=== PATIENT | male | born 1935 | race Caucasian/White ===

== ENCOUNTER 2017-03-29 12:43 | Inpatient (IN) | payer OTHER, MEDICARE ==
[~2017-03-29] VITALS: Ht 177.8 cm; Wt 81.6 kg
[2017-03-29 13:22] LABS: ABSOLUTE BASOPHIL COUNT 0 /CUMM (0.0-0.2); ABSOLUTE EOSINOPHIL COUNT 0 /CUMM (0.0-0.7); ABSOLUTE LYMPH COUNT 1.2 /CUMM (1.2-3.4); ABSOLUTE MONOCYTE COUNT 1.9 /CUMM (0.10-0.60); BASOPHIL % 0.2 % (0.0-2.0); EOSINOPHIL % 0.1 % (0-5); HEMATOCRIT 44.3 % (42-52); MEAN CORPUSCULAR HGB CONC 33.2 G/DL (33.0-37.0); MEAN CORPUSCULAR VOLUME 96.3 FL (80.0-94.0); MEAN PLATELET VOLUME 8.7 FL (7.4-10.4); PLATELET COUNT 267 /CUMM (130-400); RBC DISTRIBUTION WIDTH 13.5 % (11.5-14.5); WHITE BLOOD CELL COUNT 8.1 /CUMM (4.8-10.8)
[2017-03-29] MEDS ORDERED: LOSARTAN POTAS100 M1 PO (13:23)
[2017-03-29] MEDS ORDERED: AMLODIPINE BESYL5 M1 PO (13:23)
[2017-03-29] MEDS ORDERED: CEFUROXIME500 MG PO (13:24)
[2017-03-29] MEDS ORDERED: PRESERVISION A1 EAC1 PO (13:25)
[2017-03-29] MEDS ORDERED: OCUVITE SOFTGE1 EACH PO (13:38)
--- NOTE | 2017-03-29 13:39 | RADIOLOGY REPORT ---
EXAMINATION: XR CHEST CLINICAL INFORMATION: Shortness of breath, cough and congestion. Rule out pneumonia. COMPARISON: Chest x-ray dated 08/25/2012. TECHNIQUE: 2 views of the chest were obtained. FINDINGS: The cardiomediastinal silhouette is within normal limits in size. Persistent left basilar reticular opacities are seen, slightly progressed compared to prior exam, consistent with acute on chronic atelectasis.. Mild linear subsegmental atelectasis is also seen in the right lung base. No dense consolidation, effusion or pneumothorax is seen. Central airways are slightly thickened. Bony structures are unremarkable. IMPRESSION: 1. Acute on chronic left basilar atelectasis. Mild linear subsegmental atelectasis right lung base. Recommend follow-up chest x-ray to document resolution of findings. 2. No definite dense consolidation seen to suspect pneumonia.
[2017-03-29] MEDS ORDERED: TURMERIC500 M2 PO (13:40)
[2017-03-29] MEDS ORDERED: RESTASIS1 EACH OU (13:40)
--- NOTE | 2017-03-29 13:48 | ED GENERAL ADULT ---
History of Present Illness General Chief Complaint: General Adult Stated Complaint: "I WAS GIVEN THE WRONG MED, I HAVE SIDE EFFECTS" Source: patient Exam Limitations: no limitations Vital Signs & Intake/Output Vital Signs & Intake/Output Vital Signs Date Time Temp Pulse Resp B/P B/P Pulse O2 O2 Flow FiO2 Mean Ox Delivery Rate 03/31 1442 97.8 70 20 108/56 92 03/31 0800 91 Nasal 1.0L Cannula 03/31 0646 98.6 52 18 110/56 96 Nasal 2.0L Cannula 03/31 0000 Nasal 2.0L Cannula 03/30 2226 98.1 65 20 130/60 91 Room Air 03/30 2206 70 132/82 ED Intake and Output 03/31 0000 03/30 1200 Intake Total 1640 Output Total 400 1075 Balance 1240 -1075 Intake, Oral 1640 Output, Urine 400 1075 Patient 180 lb Weight Allergies Coded Allergies: Penicillins (ANAPHYLAXIS 03/29/17) cefuroxime (VOMITING, DIZZY, DISORIENTED, PER PT THOUGHT STROKE 03/29/17) morphine (UPSET STOMACH/VOMITING 03/29/17) Reconcile Medications Amlodipine Besylate 5 MG TABLET 1 TAB PO QPM BP (Reported) Cefuroxime Axetil (Cefuroxime) 500 MG TABLET 1 TAB PO BID ANTIBIOTIC ( Reported) Cyclosporine (Restasis) 0.05 % DROPERETTE 2 GTT OU PRN BOTH EYES -LUBRICANT ( Reported) Losartan Potassium 100 MG TABLET 1 TAB PO DAILY BP (Reported) Turmeric Root Extract (Turmeric) (Unknown Strength) CAPSULE (Unknown Dose) PO DAILY INFLAMMATION (Reported) Vit C/Vit E/Lutein/Min/[place]-3 (Ocuvite Softgel) 150 MG-30 UNIT-5 MG-150 MG CAPSULE 1 CAP PO DAILY SUPPLEMENT (Reported) Triage Note: PT TO ED S/P DX WITH SINUS INFECTION PRESCRIBED WITH CEFUROXIME, TOOK ONE DOSE AT 11 AM YESTERDAY, "GOT INSTANTLY NAUSEAUS, DIZZY, LIGHTHEADED". PT CONTINUES TO C/O "I HAVE NO STRENGTH, AND DIZZY". Triage Nurses Notes Reviewed? yes Onset: YESTERDAY Duration: hour(s):, better, constant, continues in ED, waxing and waning Severity: moderate HPI: Patient presents for evaluation of an adverse reaction to an antibiotic. The patient was diagnosed with postnasal drip and was given a prescription for cefuroxime. He states he has a known penicillin allergy (hives). After taking the medication and became disoriented with slurred speech and an unsteady gait. He even vomited once. Fortunately he is now asymptomatic. Patient denies rash swelling or wheezing. Past History Travel History Traveled to [place] past 21 day No Medical History Any Pertinent Medical History? see below for history Neurological: NONE EENT: NONE Cardiovascular: hypertension Respiratory: NONE Gastrointestinal: diverticulitis Hepatic: NONE Renal: benign prost hyperplasia Musculoskeletal: NONE Psychiatric: NONE Endocrine: NONE Blood Disorders: NONE Cancer(s): NONE HAIR PREPARER/Reproductive: NONE Surgical History Surgical History: non-contributory Psychosocial History What is your primary language Latvian Tobacco Use: Never used ETOH Use: denies use Illicit Drug Use: denies illicit drug use Family History Hx Contributory? No Review of Systems Review of Systems Constitutional: Reports: no symptoms. EENTM: Reports: no symptoms. Respiratory: Reports: no symptoms. Cardiovascular: Reports: no symptoms. GI: Reports: no symptoms. Genitourinary: Reports: no symptoms. Musculoskeletal: Reports: no symptoms. Skin: Reports: no symptoms. Neurological/Psychological: Reports: see HPI. Hematologic/Endocrine: Reports: no symptoms. Immunologic/Allergic: Reports: no symptoms. All Other Systems: Reviewed and Negative Physical Exam Physical Exam General Appearance: see below Comments: Gen.: Well-nourished, well-developed, no acute respiratory distress. Head: Normocephalic, atraumatic. Eyes: Normal inspection bilaterally Ears: Normal inspection bilaterally Nose: Normal inspection Throat/mouth : Moist mucosa Neck: Supple, full range of motion, no goiter Heart: Regular rate and rhythm, no murmurs rubs or gallops Lungs: Clear to auscultation bilaterally with normal air entry Chest: Nontender Back: Normal range of motion Abdomen: Soft, nontender, nondistended, normal bowel sounds Extremities: Normal range of motion grossly, equal radial pulses, no cyanosis clubbing or edema Neurologic: Cranial nerves grossly intact, speech is clear Skin: warm and dry Psychiatric: Calm, cooperative, no apparent delusions or hallucinations Core Measures ACS in differential dx? No CVA/TIA Diagnosis: No Sepsis Present: No Sepsis Focused Exam Completed? No Progress Differential Diagnoses I considered the following diagnoses in my evaluation of the patient: Allergic reaction, adverse side effect Plan of Care: Orders Procedure Date/time Status Vital Signs 03/31 332 Active Teach/Educate 03/31 332 Active Pain Treatment and Response 03/31 332 Active Nutritional Intake, Monitor 03/31 332 Active Isolation 03/31 332 Active Intake & Output 03/31 332 Active Patient Care Conference 03/31 332 Active Activity/Ambulation 03/31 332 Active Anticipated Discharge 03/31 UNK Active Current Medications Sig/Noreen Start time Last Medication Dose Stop Time Status Admin Codeine 15 MG AT BEDTIME NEED.. 03/31 1015 AC (Codeine 15MG Tablet) Oseltamivir Phosphate 75 MG BID 03/30 1402 AC 03/31 (Tamiflu 75MG) 04/03 2201 1023 Amlodipine Besylate 5 MG QPM 03/29 2300 AC 03/30 (Norvasc) 2206 Guaifenesin 10 ML Q6P PRN 03/29 2130 AC 03/31 (Robitussin) 0445 Sodium Chloride 2 SPRAY Q4P PRN 03/29 213 AC (Nasal) Acetaminophen 650 MG Q6P PRN 03/29 2045 AC (Tylenol) Acetaminophen 1,000 MG Q6P PRN 03/29 2045 AC (Ofirmev) Laboratory Tests 03/31/17 0820: Anion Gap 10, Estimated GFR > 60, BUN/Creatinine Ratio 20.0, TSH 2.080, Free T4 0.66 L, Thyroxine Binding Indx 33.9, Total Testosterone 27.2 L, Cortisol AM Sample 12.8 03/31/17 0820: ACTH Stimulation Pending, CBC w Diff MAN DIFF ORDERED, RBC 4.23 L, MCV 95.8 H, MCH 32.6 H, RDW 13.2, MPV 8.6, Gran % 32.8 L, Lymphocytes % 43.9, Monocytes % 20.8 H, Eosinophils % 1.9, Basophils % 0.6, Absolute Granulocytes 1.8, Segmented Neutrophils 32 L, Band Neutrophils 5, Absolute Lymphocytes 2.5, Lymphocytes 46, Monocytes 12 H, Absolute Monocytes 1.2 H, Eosinophils 4, Absolute Eosinophils 0.1, Basophils 1, Absolute Basophils 0, Platelet Estimate ADEQUATE, Normocytic RBCs VERIFIED, Normochromic RBCs VERIFIED, PUBS MCHC 34.0 03/31/17 0515: Urine Osmolality 277 L 03/31/17 0515: Urine Color YEL, Urine Clarity CLEAR, Urine pH 6.0, Ur Specific [place] 1.010, Urine Protein NEG, Urine Ketones NEG, Urine Nitrite NEG, Urine Bilirubin NEG, Urine Urobilinogen 0.2, Ur Leukocyte Esterase NEG, Ur Microscopic EXAM NOT REQUIRED, Urine Hemoglobin NEG, Urine Glucose NEG 03/30/17 1615: Insulin-like GF I Pending, IGF I Z-Score (Male) Pending, IGF I Z-Score (Female) Pending, ACTH Stimulation Pending Diagnostic Imaging: Discussed w/RAD: CT Scan. Radiology Impression: PATIENT: HUGH OAKES PRESENT AGE: 81 PATIENT ACCOUNT NO: [id number] : 35 LOCATION: [facility] ORDERING PHYSICIAN: Randall Stroud MD SERVICE DATE: 03/29/17 EXAM TYPE: CAT - CT HEAD WO IV CONTRAST EXAMINATION: CT HEAD WITHOUT CONTRAST CLINICAL INFORMATION: Slurred speech and gait instability. COMPARISON: None TECHNIQUE: Contiguous axial imaging was performed from the skull base to vertex without intravenous administration of contrast. DLP: 627 mGy-cm FINDINGS: There is no evidence of acute intracranial hemorrhage or territorial infarction. No abnormal mass effect or midline shift is seen. Thompson to white matter differentiation is well preserved. There is small prominent hypodensity in the sella extending to suprasellar region and measuring fluid density likely arachnoid cyst or empty sella syndrome. The ventricles are a mildly enlarged with mild prominence of cortical sulci.. There is no abnormal attenuation within the brain parenchyma. The osseous structures and soft tissues are normal. The mastoid air cells and visualized portions of the paranasal sinuses are well aerated. 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 There R adjacent vascular calcifications of carotid arteries. The lesion probably has a mass effect on the foramina of [place] or the third ventricle. This is most likely an arachnoid cyst. Other differential diagnosis such as cystic intrasellar pituitary tumor is considered less likely. Recommend MRI brain with and without contrast with attention to the sella. If previous CT is available at other institutions comparison can be performed. DICTATED BY: Penny JARA,Eduardo DATE/TIME DICTATED:03/29/171629 PILLING MACHINE OPERATOR:NOONAN DATE/TIME TRANSCRIBED:03/29/171629 CONFIDENTIAL, DO NOT COPY WITHOUT APPROPRIATE AUTHORIZATION. <Electronically signed in Other Vendor System> SIGNED BY: Penny JARA,Eduardo 03/29/17 0212 Initial ED EKG: NSR, rate (65), no ST T wave changes Prior EKG: unchanged Comments: 03/29/2017 6:23:32 PM patient's case discussed with Dr. Mackay and subsequently with Dr. Flynn who feels that the arachnoid cyst is an incidental finding but recommends endocrinology consultation given its position within the brain. Departure Departure Disposition: HOME OR SELF CARE Condition: Stable Clinical Impression Primary Impression: Adverse reaction to antibiotic Qualifiers: Encounter type: initial encounter Qualified Code: T36.95XA - Adverse effect of unspecified systemic antibiotic, initial encounter Referrals: Adore JARA,Danyel Yang (PCP/Family) Departure Forms: Customer Survey General Discharge Information Critical Care Note Critical Care Note Critical Care Time: non-applicable
--- NOTE | 2017-03-29 16:46 | CT SCAN REPORT ---
EXAMINATION: CT HEAD WITHOUT CONTRAST CLINICAL INFORMATION: Slurred speech and gait instability. COMPARISON: None TECHNIQUE: Contiguous axial imaging was performed from the skull base to vertex without intravenous administration of contrast. DLP: 627 mGy-cm FINDINGS: There is no evidence of acute intracranial hemorrhage or territorial infarction. No abnormal mass effect or midline shift is seen. Thompson to white matter differentiation is well preserved. There is small prominent hypodensity in the sella extending to suprasellar region and measuring fluid density likely arachnoid cyst or empty sella syndrome. The ventricles are a mildly enlarged with mild prominence of cortical sulci.. There is no abnormal attenuation within the brain parenchyma. The osseous structures and soft tissues are normal. The mastoid air cells and visualized portions of the paranasal sinuses are well aerated. 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 There R adjacent vascular calcifications of carotid arteries. The lesion probably has a mass effect on the foramina of [place] or the third ventricle. This is most likely an arachnoid cyst. Other differential diagnosis such as cystic intrasellar pituitary tumor is considered less likely. Recommend MRI brain with and without contrast with attention to the sella. If previous CT is available at other institutions comparison can be performed.
--- NOTE | 2017-03-29 21:54 | History & Physical ---
Laura JARA,[facility] 03/29/17 2153: General Information and HPI MD Statement: I have seen and personally examined HUGH PARIS and documented this H&P. The patient is a 81 year old M who presented with a patient stated chief complaint of [lightheadedness and unsteady gait]. Source of Information: patient Exam Limitations: no limitations History of Present Illness: Mr. Paris is a 84-year-old gentleman with past medical history significant for hypertension, BPH, diverticulitis and basal cell carcinoma presents to the ER with chief complaints of weakness, lightheadedness and unsteady gait for the past 3 days. According to the patient, he had cough postnasal drip for the past 3-4 days, he went to a walk-in clinic 2 days ago and was prescribed cefuroxime for postnasal drip. He took only one dose of antibiotic and started feeling weak, lightheaded and unsteady on his gait, thinks he caught a panic reaction from the antibiotic is is allergic to penicillin. Also reports feeling congested, chills or chest pain with cough. Denies fever, sick contacts or recent travel. States cough is severe, wakes him up from sleep and is especially worse on lying down. Denies any localized weakness, numbness or tingling in any part of the body. Allergies/Medications Allergies: Coded Allergies: Penicillins (ANAPHYLAXIS 03/29/17) cefuroxime (VOMITING, DIZZY, DISORIENTED, PER PT THOUGHT STROKE 03/29/17) morphine (UPSET STOMACH/VOMITING 03/29/17) Home Med list Amlodipine Besylate 5 MG TABLET 1 TAB PO QPM BP (Reported) Cefuroxime Axetil (Cefuroxime) 500 MG TABLET 1 TAB PO BID ANTIBIOTIC ( Reported) Cyclosporine (Restasis) 0.05 % DROPERETTE 2 GTT OU PRN BOTH EYES -LUBRICANT ( Reported) Losartan Potassium 100 MG TABLET 1 TAB PO DAILY BP (Reported) Turmeric Root Extract (Turmeric) (Unknown Strength) CAPSULE (Unknown Dose) PO DAILY INFLAMMATION (Reported) Vit C/Vit E/Lutein/Min/[place]-3 (Ocuvite Softgel) 150 MG-30 UNIT-5 MG-150 MG CAPSULE 1 CAP PO DAILY SUPPLEMENT (Reported) Past History Travel History Traveled to [place] past 21 day No Medical History Neurological: NONE EENT: NONE Cardiovascular: hypertension Respiratory: NONE Gastrointestinal: diverticulitis Hepatic: NONE Renal: benign prost hyperplasia Musculoskeletal: NONE Psychiatric: NONE Endocrine: NONE Blood Disorders: NONE Cancer(s): basal cell carcinoma (1979) CLOUD ADMINISTRATOR/Reproductive: NONE Surgical History Surgical History: non-contributory Past Family/Social History Psychosocial History Smoking Status: Never Smoked ETOH Use: occasional use Illicit Drug Use: denies illicit drug use Functional Ability ADLs Independent: dressing, eating, toileting, bathing. Ambulation: independent IADLs Independent: shopping, housework, finances, food prep, telephone, transportation , medication admin. Review of Systems Review of Systems Constitutional: Reports: chills, weakness. EENTM: Reports: no symptoms. Cardiovascular: Reports: no symptoms. Respiratory: Reports: no symptoms. GI: Reports: no symptoms. Genitourinary: Reports: no symptoms. Musculoskeletal: Reports: no symptoms. Skin: Reports: no symptoms. Neurological/Psychological: Reports: no symptoms. Hematologic/Endocrine: Reports: no symptoms. Immunologic/Allergic: Reports: no symptoms. All Other Systems: Reviewed and Negative Exam & Diagnostic Data Last 24 Hrs of Vital Signs/I&O Vital Signs Date Time Temp Pulse Resp B/P B/P Pulse O2 O2 Flow FiO2 Mean Ox Delivery Rate 03/30 0007 98.6 61 20 138/62 94 Nasal 2.0L Cannula 03/30 0000 Nasal 2.0L Cannula 03/29 2320 98.5 56 18 115/56 96 Nasal 2.0L Cannula 03/29 2220 98.7 59 18 138/61 03/29 1857 59 18 138/61 96 Nasal 2.5L Cannula 03/29 1631 98.7 60 18 136/62 95 Nasal 2.5L Cannula 03/29 1502 98.5 64 18 142/68 94 Room Air 03/29 1246 98.2 77 20 128/66 94 Room Air Room Air Intake & Output 03/30 0800 03/30 0000 03/29 1600 Intake Total 440 0 Output Total 175 0 Balance 265 0 Intake, Oral 440 0 Output, Urine 175 0 Patient 180 lb 180 lb Weight Weight Reported by Patient Measurement Method Physical Exam General Appearance Alert, Oriented X3, Cooperative, No Acute Distress Skin No Rashes, No Breakdown HEENT Atraumatic, PERRLA, EOMI, Dry Mucous Membranes Neck Supple, No JVD, No thryomegaly Cardiovascular Regular Rate, Normal S1, Normal S2 Lungs Clear to Auscultation, Normal Air Movement Abdomen Normal Bowel Sounds, Soft, No Tenderness Neurological Normal Speech, Strength at 5/5 X4 Ext, Normal Tone, Sensation Intact, Cranial Nerves 3-12 NL Extremities No Clubbing, No Cyanosis, No Edema, Normal Pulses Last 24 Hrs of Labs/Ran: Laboratory Tests 03/29/17 2134: Anion Gap 10, Estimated GFR > 60, BUN/Creatinine Ratio 20.0, Troponin I 0.04 03/29/17 2130: Troponin I Cancelled 03/29/17 1551: Urinalysis LIGHT H, Urine Color YEL, Urine Clarity CLEAR, Urine pH 6.0, Ur Specific [place] >= 1.030, Urine Protein 30 H, Urine Ketones NEG, Urine Nitrite NEG, Urine Bilirubin NEG, Urine Urobilinogen 0.2, Ur Leukocyte Esterase NEG, Ur Microscopic SEDIMENT EXAMINED, Urine RBC RARE, Ur Epithelial Cells RARE, Urine Mucus RARE, Urine Hemoglobin TRACE-INTACT H, Urine Glucose NEG 03/29/17 1551: Urine Osmolality 704, Ur Random Creatinine 192.8, Ur Random Sodium 30, Ur Random Potassium 69.6, Fraction Sodium Excret 0.1 03/29/17 1257: Anion Gap 11, Estimated GFR 58 L, BUN/Creatinine Ratio 17.5, Glucose 108 H, Serum Osmolality 267 L, Calcium 8.5, Magnesium 1.8, Total Bilirubin 0.8, AST 43 , ALT 48, Alkaline Phosphatase 52, Troponin I 0.03, Total Protein 6.5, Albumin 3.6, Globulin 2.9, Albumin/Globulin Ratio 1.2, TSH 0.618, Free T4 0.68 L, Cortisol PM Sample 20.9 H, CBC w Diff MAN DIFF ORDERED, RBC 4.60 L, MCV 96.3 H, MCH 32.0 H, RDW 13.5, MPV 8.7, Gran % 61.0, Lymphocytes % 15.0 L, Monocytes % 23.7 H, Eosinophils % 0.1, Basophils % 0.2, Absolute Granulocytes 5.0, Segmented Neutrophils 55, Band Neutrophils 5, Absolute Lymphocytes 1.2, Lymphocytes 13 L, Monocytes 27 H, Absolute Monocytes 1.9 H, Absolute Eosinophils 0, Absolute Basophils 0, Platelet Estimate VERIFIED BY SMEAR, Poikilocytosis 1+, Britton Cells 1+, PUBS MCHC 33.2 Diagnostic Data EKG Results Normal sinus rhythm QTC 421 Nonspecific interventricular conduction delay CXR Results IMPRESSION: Clear lungs. No acute process. Assessment/Plan Assessment: Mr. Paris is a 84-year-old gentleman with past medical history significant for hypertension, BPH, diverticulitis and basal cell carcinoma presents to the ER with chief complaints of weakness, lightheadedness and unsteady gait for the past 3 days. A/P 1. CT findings of her arachnoid cyst; - CT head shows Intrasellar hypodense lesion with suprasellar extension likely arachnoid cyst. -Further assessment with MRI - Neurosurgery consultation in am 2. Lightheadedness, weakness and unsteady gait likely secondary to Hyponatremia ; - Patient is low serum sodium, low serum osmolality and high urine osmolality and high urine specific gravity suggesting dehydration. - We'll continue gentle hydration - Will check serum sodium every 6-8 hours with a goal correction of 8 mEq per 24 hours. 3. Postnasal drip; - Continue conservative management with Flonase and Tessalon 4. Hypertension - Continue home medications. DVT prophylaxis with subcutaneous Lovenox Patient is full code As Ranked By This Provider Problem List: 1. Arachnoid cyst 2. Hyponatremia Core Measures/Misc (12/07) Acute Coronary Syndrome ACS Diagnosis: No Congestive Heart Failure Congestive Heart Failure Diagnosis No Cerebrovascular Accident CVA/TIA Diagnosis: No VTE (View Protocol) VTE Risk Factors Age>40 No Mechanical VTE Prophylaxis d/t N/A MechProphylax Ordered No VTE Pharm Prophylaxis d/t NA PharmProphylax ordered Sepsis (View protocol) Sepsis Present: No Andra Holcomb 03/29/17 4449: Resident Review Statement Resident Statement: examined this patient, discussed with business analyst intern Other Findings: Patient is a 81-year-old gentleman with a past medical history negative for hypertension, dry eyes presented to the ED for the evaluation of generalized weakness and malaisS. Patient has been feeling weak and lethargic for the last 1 week(as per family). Reports dizziness with lightheadedness and unsteady gait. Also has been having upper respiratory symptoms including dry cough and postnasal drip. Patient was seen in the urgent care about 2 days ago and was given cefuroxime for possible sinus infection. After taking the medication, patient's symptoms gotten worse, felt extremely weak and lethargic. Patient has a known penicillin allergy(HIVES), and blamed all of the symptoms related to taking the medication. Denies any chest discomfort/trouble breathing palpitations. Denied nausea vomiting abdominal discomfort no urinary bowel habit complaints no recent weight loss. Denies any blurry vision/falls. Of the note patient does not drink enough water on a daily basis, and on top of it drinks 6 cups of coffee. Never smoked and does not drink alcohol or use any illicit drugs. Vitals on admission temperature 98.2, pulse 77,resp rate 20, blood pressure 128/ 66 on room air. On examination General Appearance:alert oriented 3, not in acute distress Skin: Grossly normal HEENT: PEERLA Neck: Supple, No JVD Cardiovascular: Regular Rate, Normal S1, Normal S2, systolic murmur in the second right intercostal space. Lungs: Equal breath sounds bilaterally on lung exam without any rhonchi or wheeze Abdomen: Normal Bowel Sounds, Soft, no tenderness Neurological: Normal Speech, Strength at 5/5 X4 Ext, Cranial Nerves 3-12 NL, Reflexes 2+ Extremities: No evidence of edema/swelling in the lower extremities. Pertinent labs on admission Normal WBC H&H stable, hyponatremia 130 elevated BUN 21 with normal creatinine 1.2, serum osmolality low at 267, with remission levels pending, normal LFTs, Urine osmolality 704, with urine random sodium 30. Chest x-ray: Acute on chronic left basilar atelectasis. Mild linear subsegmental atelectasis right lung base. Recommend follow-up chest x-ray to document resolution of findings. CT head revealed Intrasellar hypodense lesion with suprasellar extension likely arachnoid cyst. There R adjacent vascular calcifications of carotid arteries. The lesion probably has a mass effect on the foramina of [place] or the third ventricle. This is most likely an arachnoid cyst. Other differential diagnosis such as cystic intrasellar pituitary tumor is considered less likely. Recommend MRI brain with and without contrast with attention to the sella. Problem list Generalized weakness and malaise with dizziness and lightheadedness(likely dehydration)-hypotonic hypovolemic hyponatremia. Unsteady gait with weakness with a positive CT scan findings((Arachnoid cyst with a mass effect) Persistent cough and postnasal drip History of hypertension Generalized weakness and malaise with dizziness and lightheadedness(likely dehydration)-hypotonic hypovolemic hyponatremia. * Admit the patient [facility] floor * Patient received 1 L normal saline in the ED will recheck BEP. * Labs including BUN, serum osmolality and urine osmolality are consistent with underlying dehydration leading to hyponatremia. * We'll continue with gentle hydration. * Recheck sodium levels every 6-8 hours. * Avoid overcorrection more than 8 mEq per liter. Unsteady gait with weakness /dizziness with a positive CT scan findings( Arachnoid cyst with a mass effect) * Patient's underlying symptoms can be related to CT scan finding of arachnoid cyst with a mass effect. * For further assessment/investigation of the cyst will do MRI of the head with and without gadolinium tomorrow. * Obtained neurosurgery consult tomorrow. Persistent cough and postnasal drip * symtomatic treatment. * tessolon pearls. * consider checking flu swab in am. History of hypertension * Continue amlodipine and losartan. DVT prophylaxis with subcutaneous Lovenox Mild to moderate pain controlled with IV Tylenol Patient is full code Sung Mackay MD 03/29/17 2303: Attending MD Review Statement Attending Statement Attending MD Statement: examined this patient, discuss w/resident/PA/TRUCK UNLOADER, agreed w/resident/PA/TRUCK UNLOADER, discussed with family, reviewed EMR data (avail), reviewed images, amended to note Attending Assessment/Plan: The patient is an 81 yo male with h/o HTN, diverticulitis, & BPH who presented in the [place] ED on the day of admission with c/o generalized weakness and malaise. He had been seen at an urgent care center and treated for post nasal drip with a cephalosponin (cefuroxime) antibiotic. He initially came to the ED after an episode of nausea and dizziness- confusion noted by family feeling his symptoms may be a side effect as he is PCN allergic, however symptoms pre-dated the antibiotic. He denied any fever, chills, dyspnea (had cough on reclining due to post nasal drip). In the ED it was noted that his Na was 130 and urine SG high- he appeared volume depleted. He did endorse that he does not drink much liquid except coffee. He underwent a CT scan of the head in the ED which showed abnormality as described. Physical Exam: VS: T 8.5, P 60, R 18, BBP 136/62, PO 95% 2.5 L HEENT: eyes- PERRLA, EOMI nose- clear discharge aric- dry mucosa Neck: no JVD/bruits Chest: clear Cor: RRR nl S1, S2 w/o murm Abd: BS+, soft, NT, - masses or HSM Ext: no edema, pulses 2_ Neuro: alert & oriented x 3 at time of my exam, mild generalized weakness, however non-focal, gait not tested Labs/Tests- as above Impression/Plan: #Weakness/Malaise- most likely secondary to hyponatremia. Plan: Will brink in as OBServation patient and correct hyponatremia and follow. PT evaluation. #Hyponatremia- most c/w volume depletion based on exam. Urine SG is high. Plan: Agree with IV hydration with NS and re-check BEP. Check urine lytes, osms, etc. - check serum Mg. #Arachnoid Cyst- noted on head CT- ? mass effect, ? pituitary involvement. Plan: Will obtain MRI with pituitary protocol as suggested by Radiology. Consult Neurosurgery. Agree with checking TSH and Cortisol. #HTN- BP has been stable as per patient. Plan: Continue Amlodipine. Consider hold losartan with Na level. #Post Nasal Drip- he had been begun on FLonase as well. Coughs when reclines. No purulent sputum (only clear). Plan: Continue Flonase - Abhion Yovani prn, follow symptoms.
[2017-03-30 00:07] VITALS: BP 138/62
[2017-03-30 07:35] VITALS: BP 140/62
[2017-03-30 09:29] LABS: ABSOLUTE BASOPHIL COUNT 0 /CUMM (0.0-0.2); ABSOLUTE EOSINOPHIL COUNT 0 /CUMM (0.0-0.7); ABSOLUTE GRANULOCYTE CT 3.2 /CUMM (1.4-6.5); EOSINOPHIL % 0.4 % (0-5); MEAN PLATELET VOLUME 8.9 FL (7.4-10.4)
--- NOTE | 2017-03-30 09:35 | PN- Att Addend ---
Attending Addendum Attending Brief Note Patient seen and examined. He says he hasn't tried to walk so he doesn't know about his dizziness but his cough is still very bad and he cannot lay flat at all without coughing. He is an 81-year-old male with a past medical history of hypertension and BPH who is here with acute onset of dizziness. He was found to have hyponatremia in the ER and was brought in for observation for presumed hypovolemic hyponatremia and a CT head that showed a questionable arachnoid cyst with ? mass effect. I explained to him the finding of the CT head and that we really need to get an MRI to evaluate better. At this point he is euvolemic so I will stop the fluids. Taper the O2, check a flu swab follow-up on the MRI and follow.
[2017-03-30 09:57] LABS: ABSOLUTE LYMPH COUNT 1.6 /CUMM (1.2-3.4); ABSOLUTE MONOCYTE COUNT 1.8 /CUMM (0.10-0.60); BASOPHIL % 0.4 % (0.0-2.0); GRANULOCYTE % 48.1 % (42.2-75.2); HEMATOCRIT 41.3 % (42-52); MEAN CORPUSCULAR HGB 32.6 PG (27.0-31.0); MEAN CORPUSCULAR HGB CONC 34.2 G/DL (33.0-37.0); MEAN CORPUSCULAR VOLUME 95.4 FL (80.0-94.0); PLATELET COUNT 235 /CUMM (130-400); RBC DISTRIBUTION WIDTH 13.1 % (11.5-14.5); RED BLOOD CELL CT 4.32 /CUMM (4.70-6.10); WHITE BLOOD CELL COUNT 6.7 /CUMM (4.8-10.8)
--- NOTE | 2017-03-30 11:26 | PN- Housestaff ---
Subjective Follow-up For: Generalized weakness Dizziness Cystic macroadenoma Subjective: The patient was seen and examined. He presented to the hospital for generalized weakness and dizziness for the past 3 days. He denies any visual complaints, visual changes. Denies headache, nausea, vomiting, shortness of breath, chest pain, abdominal pain, urinary symptoms. He states that he was recently diagnosed with acute postnasal drip and was prescribed antibiotics (cefuroxime). He attributed his symptoms to cefuroxime as he has history of allergy to penicillins. Vital signs stable. Rapid flu positive. Review of Systems Constitutional: Reports: see HPI, malaise, weakness. Denies: chills, diaphoresis, fever, unexplained weight loss. Objective Last 24 Hrs of Vital Signs/I&O Vital Signs Date Time Temp Pulse Resp B/P B/P Pulse O2 O2 Flow FiO2 Mean Ox Delivery Rate 03/30 1436 97.8 66 20 138/66 92 Room Air Room Air 03/30 1202 58 132/56 03/30 0800 95 Nasal 2.0L Cannula 03/30 0800 95 Nasal 2.0L Cannula 03/30 0735 98.4 61 20 140/62 92 03/30 0007 98.6 61 20 138/62 94 Nasal 2.0L Cannula 03/30 0000 Nasal 2.0L Cannula 03/29 2320 98.5 56 18 115/56 96 Nasal 2.0L Cannula 03/29 2220 98.7 59 18 138/61 03/29 1857 59 18 138/61 96 Nasal 2.5L Cannula 03/29 1631 98.7 60 18 136/62 95 Nasal 2.5L Cannula Intake & Output 03/30 1600 03/30 0800 03/30 0000 Intake Total 440 Output Total 500 575 175 Balance -500 -575 265 Intake, Oral 440 Output, Urine 500 575 175 Patient 180 lb Weight Physical Exam General Appearance: Alert, Oriented X3, Cooperative, No Acute Distress Skin: No Rashes Skin Temp/Moisture Exam: Warm/Dry HEENT: Atraumatic, PERRLA, EOMI, Mucous Membr. moist/pink Neck: Supple, No JVD, No thryomegaly, +2 Carotid Pulse wo Bruit, No LAD Lymphatic: Axillary nl, Cervical nl Cardiovascular: Regular Rate, Normal S1, Normal S2, No Murmurs, Gallops, Rubs Lungs: Clear to Auscultation, Normal Air Movement Abdomen: Normal Bowel Sounds, Soft, No Tenderness, No Hepatospenomegaly, No Masses Neurological: Normal Gait, Normal Speech, Strength at 5/5 X4 Ext, Normal Tone, Sensation Intact, Cranial Nerves 3-12 NL, Reflexes 2+ Extremities: No Clubbing, No Cyanosis, No Edema, Normal Pulses, No Tenderness/ Swelling Vascular: Normal Pulses, Pulses Symmetrical Other Physical Findings: No nystagmus, [id number] intact, Assessment/Plan Assessment: This is a 81-year-old gentleman with a past medical history significant for hypertension, BPH, diverticulitis, basal cell carcinoma who presented to the ED for the evaluation of generalized weakness and malaise for 3 days. He was diagnosed for acute postnasal drip and was prescribed cefuroxime 3 days prior to admission. 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 Lovenox was discontinued. NSAIDS were avoided. Neurosurgery, neurology, endocrinology and ophthalmology were consulted. * The patient has remained without any visual symptoms and visual exam remained within normal limits. * Neurology and endocrinology recommended formal ophthalmology evaluation. * Additional testing including a repeat TSH, free T4, T3 also, a.m. cortisol, ACTH, testosterone, prolactin, LH, FSH, urine osmolality, UA were ordered to further assess pituitary function. * Given patient's low free T4, he may benefit from levothyroxine, but per endocrinology, this should be decided after a repeat free T4 and TSH. * Neurology and neurosurgery did not recommend corticosteroid therapy at this point. * Neurosurgery did not recommend any neurosurgical intervention and patient was asymptomatic with normal visual jones no sign of hemorrhage on imaging. They recommended follow-up in neurosurgery at [place] as an outpatient. * The patient was reevaluated by seal mixer who did not recommend any further inpatient evaluation. * Urgent transfer if he develops any visual field abnormalities, visual symptoms , headache or focal neurologic abnormalities. #Weakness/Malaise: Patient's low sodium level was considered as a contributing factor. * PT evaluation was ordered. * Flu swab came back positive for influenza. * The patient was started on and droplet precautions. #Hyponatremia: Was thought to be secondary to volume depletion. Urine specific gravity was high. Received IV hydration. * Monitor BEP #Hypertension: Stable, was maintained on amlodipine. Losartan was held given low sodium level. * Monitor closely #Postnasal drip and cough: C/w sodium chloride nasal spray and guaifenesin #DVT prophylaxis: Alps #Patient is full code. Problem List: 1. Hyponatremia 2. Brain mass Pain Ratin Pain Location: NA Pain Goal: Remain pain free Pain Plan: NA Tomorrow's Labs & Rationales: BEP: Monitor electrolytes CBC: Monitor H&H Pit fx: Test, TSH, free T4, LH,FSH, Am cortiso
--- NOTE | 2017-03-30 12:15 | MRI REPORT ---
EXAMINATION: MR BRAIN WITHOUT AND WITH CONTRAST CLINICAL INFORMATION: Further evaluation of the sellar and supersellar cyst. COMPARISON: Head CT from 03/29/2017 TECHNIQUE: MRI of the brain/pituitary was obtained using routine sequences before and after the intravenous administration of 17 mL of OptiMARK. FINDINGS: There is an expansile solid and cystic sellar and suprasellar mass, corresponding to the CT findings. There is mass effect upon the optic chiasm as well as a portion of the prechiasmatic optic nerves and retrochiasmatic optic tracts. There is also mild mass effect on the hypothalamus, right more than left, and mild mass effect on the inferior third ventricle. The cystic component is superiorly positioned and unilocular, with a tiny fluid level, and thin rim of enhancement; there is also a tiny linear focus of T1 shortening along the right lateral margin of the cystic component. The solid component is inferiorly positioned and inseparable from the pituitary tissue. In total the solid and cystic mass appears to measure approximately 1.8 x 2.1 x 2.2 cm (AP by TV by CC). The infundibulum is not definitively visualized separate from the mass. The cavernous internal carotid artery flow-voids are maintained. The cavernous sinuses and Meckel's caves appear maintained. The supraclinoid internal carotid arteries approximate the mass, and the A1 segments of the anterior cerebral arteries are draped across the anterior aspect of the mass. No acute brain ischemia. There is mild generalized prominence of the ventricles and sulci and mild scattered T2 prolongation in the bihemispheric white matter with a periatrial predominance. The major arterial and venous flow voids are maintained. No extra-axial surface collection. There is no shift of the normally midline structures. The cerebellar tonsils are normally positioned. No abnormal parenchymal enhancement is visualized accounting for artifact. Marrow signal is preserved. No upper cervical adenopathy. There is mild mucosal thickening in the frontal, ethmoid, sphenoid, and maxillary sinuses. 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 The differential would include a craniopharyngioma.
--- NOTE | 2017-03-30 14:11 | Cons- Neurology ---
General Information and HPI Consulting Request Date of Consult: 03/30/17 Requested By: Angeles JARA,Marisol Yang History of Present Illness: 81-year-old male with history of hypertension and benign prostatic hypertrophy since with a several day history of postnasal drip and cough. He thereafter began to feel somewhat lightheaded. He ultimately presented to [facility]. Due to his dizziness or lightheadedness he underwent imaging of the brain which revealed a suprasellar mass with a cystic component, suggestive of craniopharyngioma. Neurology has been asked to assess. The patient denies any significant headache, change in vision or appendicular symptomatology. There has been no vomiting. Allergies/Medications Allergies: Coded Allergies: Penicillins (ANAPHYLAXIS 03/29/17) cefuroxime (VOMITING, DIZZY, DISORIENTED, PER PT THOUGHT STROKE 03/29/17) morphine (UPSET STOMACH/VOMITING 03/29/17) Home Med List: Amlodipine Besylate 5 MG TABLET 1 TAB PO QPM BP (Reported) Cefuroxime Axetil (Cefuroxime) 500 MG TABLET 1 TAB PO BID ANTIBIOTIC ( Reported) Cyclosporine (Restasis) 0.05 % DROPERETTE 2 GTT OU PRN BOTH EYES -LUBRICANT ( Reported) Losartan Potassium 100 MG TABLET 1 TAB PO DAILY BP (Reported) Turmeric Root Extract (Turmeric) (Unknown Strength) CAPSULE (Unknown Dose) PO DAILY INFLAMMATION (Reported) Vit C/Vit E/Lutein/Min/Crossnore-3 (Ocuvite Softgel) 150 MG-30 UNIT-5 MG-150 MG CAPSULE 1 CAP PO DAILY SUPPLEMENT (Reported) Review of Systems Review of Systems: Notable for nasal discharge, cough and lightheadedness. There is been no recent fever, chills, rash, diplopia, dysarthria, dysphagia, chest pain, shortness breath, vomiting, vertigo, joint inflammation or bleeding disturbance Past History Travel History Traveled to [place] past 21 day No Medical History Neurological: NONE EENT: NONE Cardiovascular: hypertension Respiratory: NONE Gastrointestinal: diverticulitis Hepatic: NONE Renal: benign prost hyperplasia Musculoskeletal: NONE Psychiatric: NONE Endocrine: NONE Blood Disorders: NONE Cancer(s): basal cell carcinoma (1979) COGNOS ADMINISTRATOR/Reproductive: NONE Surgical History Surgical History: non-contributory Psychosocial History Smoking Status: Never Smoked ETOH Use: occasional use Illicit Drug Use: denies illicit drug use Functional Ability ADLs Independent: dressing, eating, toileting, bathing. Ambulation: independent IADLs Independent: shopping, housework, finances, food prep, telephone, transportation , medication admin. Exam & Diagnostic Data Vital Signs and I&O Vital Signs Date Time Temp Pulse Resp B/P B/P Pulse O2 O2 Flow FiO2 Mean Ox Delivery Rate 03/30 1202 58 132/56 03/30 799 95 Nasal 2.0L Cannula 03/30 799 95 Nasal 2.0L Cannula 03/30 0735 98.4 61 20 140/62 92 03/30 0007 98.6 61 20 138/62 94 Nasal 2.0L Cannula 03/30 0000 Nasal 2.0L Cannula 03/29 2320 98.5 56 18 115/56 96 Nasal 2.0L Cannula 03/29 2220 98.7 59 18 138/61 03/29 1857 59 18 138/61 96 Nasal 2.5L Cannula 03/29 1631 98.7 60 18 136/62 95 Nasal 2.5L Cannula 03/29 1502 98.5 64 18 142/68 94 Room Air Intake & Output 03/30 1600 03/30 0803/30 0000 Intake Total 440 Output Total 500 575 175 Balance -500 -575 265 Intake, Oral 440 Output, Urine 500 575 175 Patient 180 lb Weight Pleasant elderly gentleman in no acute distress. He was awake, alert and cooperative. Higher cortical function was grossly intact. Speech was fluent. The head was normocephalic and atraumatic. Pupils were equal. Extraocular movements were full. There was no nystagmus. Funduscopic examination showed sharp disc margins. There was no field cut to finger confrontation. Facial strength and sensation was intact. Hearing was grossly normal. Tongue was midline. The motor examination showed no drift of the upper extremities. There was no focal or lateralizing weakness. Deep tendon reflexes were symmetric. Fine finger movements and rapid alternating movements performed normally. Sensory examination was normal to light touch with double simultaneous stimulation. His gait was narrow based and steady. 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 At present the patient is quite stable without evidence of visual field cut or focal abnormalities on neurological examination. Recommendations: We would recommend formal visual field testing. An endocrine consultation would be appropriate to further assess his baseline pituitary function. Neurosurgery has been called. I see no urgency to begin corticosteroids at this juncture. Please feel free to call with any further questions. Consult Acknowledgment - Thank you for your consult request.
--- NOTE | 2017-03-30 14:13 | Discharge Summary ---
Visit Information Visit Dates Admission Date: 03/29/17 Discharge Date: 04/01/17 Hospital Course Course Attending Physician: Marisol Reynoso MD Primary Care Physician: Danyel Avitia MD Consulting Request: 1 Consulting Specialty: Neurology Consulting Request: 2 Consulting Specialty: Neurosurgery Consulting Request: 3 Consulting Specialty: Endocrinology Consulting Request: 4 Consulting Specialty: Ophthalmology Hospital Course: This is a 81-year-old gentleman with a past medical history significant for hypertension, BPH, diverticulitis, basal cell carcinoma who presented to the ED for the evaluation of generalized weakness and malaise for 3 days. He was diagnosed for acute postnasal drip and was prescribed cefuroxime 3 days prior to admission. Physical exam on admission: Vital signs: Temperature 98.7, pulse rate 60, respiratory rate 18, blood pressure 136/62, oxygen saturation 95% on 2.5 L nasal cannula oxygen. General Appearance Alert, Oriented X3, Cooperative, No Acute Distress Skin No Rashes, No Breakdown HEENT Atraumatic, PERRLA, EOMI, Dry Mucous Membranes Neck Supple, No JVD, No thryomegalyCardiovascular Regular Rate, Normal S1, Normal S2 Lungs Clear to Auscultation, Normal Air Movement Abdomen Normal Bowel Sounds, Soft, No Tenderness Neurological Normal Speech, Strength at 5/5 X4 Ext, Normal Tone, Sensation Intact, Cranial Nerves 3-12 NL Extremities No Clubbing, No Cyanosis, No Edema, Normal Pulses Pertinent labs and diagnostic data on admission: WBC 8.1, hemoglobin 14.7, hematocrit 44.3, platelet 267, sodium 131, potassium 4.4, UN 22, creatinine 1.1, TSH 0.618, free T4 0.68 Chest x-ray revealed acute on chronic left basilar atelectasis, mild linear subsegmental atelectasis right lung base but no definite dense consolidation. 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 Lovenox was discontinued. NSAIDS were avoided. Neurosurgery, neurology, endocrinology and ophthalmology were consulted. The patient remained without any visual symptoms and visual exam remained within normal limits. Neurology and endocrinology recommended formal ophthalmology evaluation. Additional testing including a repeat TSH, free T4, T3 also, a.m. cortisol, ACTH , testosterone, prolactin, LH, FSH, urine osmolality, UA were ordered to further assess pituitary function. Given patient's low free T4, he will benefit from levothyroxine, per endocrinology and close outpt f/u Neurology and neurosurgery did not recommend corticosteroid therapy at this point. Neurosurgery did not recommend any neurosurgical intervention and patient was asymptomatic with normal visual jones and no sign of hemorrhage on imaging. They recommended follow-up in neurosurgery at [place] as an outpatient. The patient was reevaluated by rn lactation who did not recommend any further inpatient evaluation. It was recommended that the patient be transferred if he develops any visual field abnormalities, visual symptoms, headache or focal neurologic abnormalities. #Weakness/Malaise/Acute Influenza: Patient's low sodium level was considered as a contributing factor. PT evaluation was ordered. Flu swab came back positive for influenza. The patient was started on Tamiflu and droplet precautions. #Hyponatremia: Was thought to be secondary to volume depletion. Urine specific gravity was high. Received IV hydration. #Hypertension: Stable, was maintained on amlodipine. Losartan was held given low sodium level. #Postnasal drip and cough: Received sodium chloride nasal spray and guaifenesin #DVT prophylaxis: Alps #Patient is full code. As stated about the patient had a CT of his head for this weakness and questionable unsteady gait which revealed this mass that was later found to be a suprasellar mass on MRI. Neurology neurosurgery and ophthalmology felt this was an incidental finding and the mass had probably grown over decades and given the lack of any obvious neurological symptom or visual field defect, no urgent neurosurgical intervention was indicated. I called the patient's rn lactation Dr. Bryant Steele who will see the patient in the office within the next 2 days to do formal visual field testing. Dr. traore will follow the patient from an outpatient basis and she has given him a referral to the [place] neurosurgeon- Dr. Ronnie Valdes for possible transsphenoidal surgery when indicated. I discussed all of this with all 3 of the patient's sons. Allergies: Coded Allergies: Penicillins (ANAPHYLAXIS 03/29/17) cefuroxime (VOMITING, DIZZY, DISORIENTED, PER PT THOUGHT STROKE 03/29/17) morphine (UPSET STOMACH/VOMITING 03/29/17) Disposition Summary Disposition Principal Diagnosis: Suprasellar mass with a cystic components with mass effects Additional Diagnosis: Influenza Discharge Disposition: other general hospital Discharge Instructions General Discharge Information Code Status: Full Code Patient's Diet: Heart healthy Patient's Activity: As tolerated Follow-Up Instructions/Appts: Please follow-up with your PCP within a week of discharge. Please follow up with aerobics teacher, Dr. traore within a week of discharge. Please follow-up with [place] neurosurgery within a week of discharge. Please see Dr. Steele your rn lactation in 1-2 days. Medications at Discharge Discharge Medications: Stop taking the following medications: Cefuroxime Axetil (Cefuroxime) 500 MG TABLET ORAL TWICE DAILY Continue taking these medications: Losartan Potassium (Losartan Potassium) 100 MG TABLET 1 Tablet ORAL DAILY Qty = 90 Comments: NOT TAKEN IN HOSPITAL Amlodipine Besylate (Amlodipine Besylate) 5 MG TABLET 1 Tablet ORAL Every night Qty = 90 Comments: LAST TAKEN: 03/31/17 @ 10 PM Vit C/Vit E/Lutein/Min/[place]-3 (Ocuvite Softgel) 150 MG-30 UNIT-5 MG-150 MG CAPSULE 1 Capsule ORAL DAILY Comments: NOT TAKEN IN HOSPITAL Cyclosporine (Restasis) 0.05 % DROPERETTE 2 Drop Both Eyes as needed for BOTH EYES -LUBRICANT Comments: NOT TAKEN IN HOSPITAL Start taking the following new medications: Oseltamivir Phosphate (Tamiflu) 75 MG CAPSULE 1 Capsule ORAL TWICE DAILY Qty = 5 No Refills Levothyroxine Sodium (Levothyroxine Sodium) 25 MCG TABLET 1 Tablet ORAL DAILY Qty = 30 No Refills Comments: LAST TAKEN: 04/01/17 @ 6 AM Copies To: Adore JARA,Danyel Yang; Mohan JARA,Nohemy; Cedric JARA,Bryant Casey
--- NOTE | 2017-03-30 14:35 | Event Note ---
Event Note Event Note: Results of the MRI noted. I also spoke to the neurosurgeon Dr. Flynn, the it application support analyst Dr. traore, the neurologist and the patient's son. This is an 81-year-old gentleman who is coming in with a complaint of cough and he thought he was having an acute side effect of the medication - Ceftin prescribed for his cough. Off note because of the persistent cough and postnasal drip I ordered an influenza swab which has come back positive and we are now treating him with Tamiflu for acute influenza. The CT scan of the head which was done for this episode of gait unsteadiness revealed a lesion questionable cystic and the MRI done with and without gadolinium shows a suprasellar mass likely pituitary in origin with a solid and cystic component with a mass effect. The neurologist examined him and his visual jones are intact, his gait is intact and he has absolutely no neurological symptoms. We have requested Dr. Chen to come and see him to do a formal visual field testing. Dr. Flynn, the neurosurgeon reviewed the images and spoke to me at length. He feels that this is probably been going on for a while and as long as the patient is stable from a visual field standpoint with no headache and no neurological symptoms he needs endocrine testing and there is no urgent neurosurgical intervention indicated. Dr. Ferrari agrees with this. They both feel that steroids are not indicated at this point and the most important priority at this point is to get his visual jones tested and to make sure that endocrinology is on board. The patient and patient's son understand all of the above.
[2017-03-30 14:36] VITALS: BP 138/66
--- NOTE | 2017-03-30 14:43 | Event Note ---
Event Note Event Note: Results of patient's MRI personally reviewed. It was also reviewed by neurologist, Dr. Ferrari. 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 Patient does not have any visual complaints at this point, visual field exam is within normal limits. Discussed with profiler hand on-call, Dr. traore, she will come and assess the patient. Per Dr. traore, the patient will need neuro-ophthalmology evaluation. Meanwhile will check ACTH, FSH, LH, prolactin, UA, urine osmolality. TSH, free T4, p.m. cortisol already checked on admission. Spoke with manager willow on-call, Dr. Chen, via phone. He will come and assess the patient later today.
--- NOTE | 2017-03-30 16:46 | Cons- Neurosurgical ---
General Information and HPI Consulting Request Date of Consult: 03/30/17 Requested By: Marisol Reynoso MD Reason for Consult: suprasellar mass on imaging History of Present Illness: 81M PMHx htn and bph, presented to ED and subsequently admitted to medical service with complaints of dizziness and lightheadedness. During his initial evaluation, he underwent imaging of the brain which showed He denies any changes in vision, though does require reading glasses for many years. He denies any headache, nausea or vomiting. Does admit to feeling generally unwell with significant cough and postnasal drip, though today he has tested positive for influenza. Neurosurgical consult was requested due to these findings on brain imaging. Allergies/Medications Allergies: Coded Allergies: Penicillins (ANAPHYLAXIS 03/29/17) cefuroxime (VOMITING, DIZZY, DISORIENTED, PER PT THOUGHT STROKE 03/29/17) morphine (UPSET STOMACH/VOMITING 03/29/17) Home Med List: Amlodipine Besylate 5 MG TABLET 1 TAB PO QPM BP (Reported) Cefuroxime Axetil (Cefuroxime) 500 MG TABLET 1 TAB PO BID ANTIBIOTIC ( Reported) Cyclosporine (Restasis) 0.05 % DROPERETTE 2 GTT OU PRN BOTH EYES -LUBRICANT ( Reported) Losartan Potassium 100 MG TABLET 1 TAB PO DAILY BP (Reported) Turmeric Root Extract (Turmeric) (Unknown Strength) CAPSULE (Unknown Dose) PO DAILY INFLAMMATION (Reported) Vit C/Vit E/Lutein/Min/[place]-3 (Ocuvite Softgel) 150 MG-30 UNIT-5 MG-150 MG CAPSULE 1 CAP PO DAILY SUPPLEMENT (Reported) Past History Medical History Cardiovascular: hypertension Gastrointestinal: diverticulitis Renal: benign prost hyperplasia Cancer(s): basal cell carcinoma (1979) Surgical History Pertinent Surgical History: non-contributory Psychosocial History Smoking Status: Never Smoked ETOH Use: occasional use Illicit Drug Use: denies illicit drug use Functional Ability ADLs Independent: dressing, eating, toileting, bathing. Ambulation: independent IADLs Independent: shopping, housework, finances, food prep, telephone, transportation , medication admin. Exam & Diagnostic Data Vital Signs and I&O Vital Signs Date Time Temp Pulse Resp B/P B/P Pulse O2 O2 Flow FiO2 Mean Ox Delivery Rate 03/30 1436 97.8 66 20 138/66 92 Room Air Room Air 03/30 1202 58 132/56 03/30 08 95 Nasal 2.0L Cannula 03/30 08 95 Nasal 2.0L Cannula 03/30 0735 98.4 61 20 140/62 92 03/30 0007 98.6 61 20 138/62 94 Nasal 2.0L Cannula 03/30 0000 Nasal 2.0L Cannula 03/29 2320 98.5 56 18 115/56 96 Nasal 2.0L Cannula 03/29 2220 98.7 59 18 138/61 03/29 1857 59 18 138/61 96 Nasal 2.5L Cannula Intake & Output 03/30 1600 03/30 0803/30 0000 03/29 1600 03/29 0000 Intake Total 840 440 0 Output Total 900 575 175 0 Balance -60 -575 265 0 Intake, Oral 840 440 0 Output, Urine 900 575 175 0 Patient 180 lb 180 lb Weight Weight Reported by Patient Measurement Method Physical Exam: GEN: NAD NEURO: cn 2-12 grossly intact, visual jones grossly intact CARD: S1S2 RRR PULM: CTAB EXT: calves soft nt Imaging Results: EXAM TYPE: CAT - CT HEAD WO IV CONTRAST EXAMINATION: CT HEAD WITHOUT CONTRAST CLINICAL INFORMATION: Slurred speech and gait instability. COMPARISON: None TECHNIQUE: Contiguous axial imaging was performed from the skull base to vertex without intravenous administration of contrast. DLP: 627 mGy-cm FINDINGS: There is no evidence of acute intracranial hemorrhage or territorial infarction. No abnormal mass effect or midline shift is seen. Thompson to white matter differentiation is well preserved. There is small prominent hypodensity in the sella extending to suprasellar region and measuring fluid density likely arachnoid cyst or empty sella syndrome. The ventricles are a mildly enlarged with mild prominence of cortical sulci.. There is no abnormal attenuation within the brain parenchyma. The osseous structures and soft tissues are normal. The mastoid air cells and visualized portions of the paranasal sinuses are well aerated. 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 There R adjacent vascular calcifications of carotid arteries. The lesion probably has a mass effect on the foramina of [place] or the third ventricle. This is most likely an arachnoid cyst. Other differential diagnosis such as cystic intrasellar pituitary tumor is considered less likely. Recommend MRI brain with and without contrast with attention to the sella. If previous CT is available at other institutions comparison can be performed. EXAM TYPE: MRI - MRI-HEAD W & W/O DEVENDRA EXAMINATION: MR BRAIN WITHOUT AND WITH CONTRAST CLINICAL INFORMATION: Further evaluation of the sellar and supersellar cyst. COMPARISON: Head CT from 03/29/2017 TECHNIQUE: MRI of the brain/pituitary was obtained using routine sequences before and after the intravenous administration of 17 mL of OptiMARK. FINDINGS: There is an expansile solid and cystic sellar and suprasellar mass, corresponding to the CT findings. There is mass effect upon the optic chiasm as well as a portion of the prechiasmatic optic nerves and retrochiasmatic optic tracts. There is also mild mass effect on the hypothalamus, right more than left, and mild mass effect on the inferior third ventricle. The cystic component is superiorly positioned and unilocular, with a tiny fluid level, and thin rim of enhancement; there is also a tiny linear focus of T1 shortening along the right lateral margin of the cystic component. The solid component is inferiorly positioned and inseparable from the pituitary tissue. In total the solid and cystic mass appears to measure approximately 1.8 x 2.1 x 2.2 cm (AP by TV by CC). The infundibulum is not definitively visualized separate from the mass. The cavernous internal carotid artery flow-voids are maintained. The cavernous sinuses and Meckel's caves appear maintained. The supraclinoid internal carotid arteries approximate the mass, and the A1 segments of the anterior cerebral arteries are draped across the anterior aspect of the mass. No acute brain ischemia. There is mild generalized prominence of the ventricles and sulci and mild scattered T2 prolongation in the bihemispheric white matter with a periatrial predominance. The major arterial and venous flow voids are maintained. No extra-axial surface collection. There is no shift of the normally midline structures. The cerebellar tonsils are normally positioned. No abnormal parenchymal enhancement is visualized accounting for artifact. Marrow signal is preserved. No upper cervical adenopathy. There is mild mucosal thickening in the frontal, ethmoid, sphenoid, and maxillary sinuses. 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 The differential would include a craniopharyngioma. 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 Currently positive for influenza, otherwise stable. P: Case discussed and images reviewed with Dr. Flynn. Patient is asymptomatic, visual jones are within normal limits, and no intracranial hemorrhage noted on imaging. No neurosurgical intervention required at this time. Recommendations included an endocrine consult for further evaluation. Patient should follow up with neurosurgery at [place] as outpatient. Thank you for this consultation. Consult Acknowledgment - Thank you for your consult request.
--- NOTE | 2017-03-30 18:55 | Cons- Ophthalmology ---
General Information and HPI Consulting Request Date of Consult: 03/30/17 Requested By: Marisol Reynoso MD Reason for Consult: Pt with adenoma found on intake MRI. called to determine if this poses any acute emergency Source of Information: patient Exam Limitations: limited equipment at the bedside History of Present Illness: 81 year old male admitted for weakness with influenza. Also of headache and was given a CT scan in the emergency room on admission. And that ends of a pituitary adenoma. It was followed up with an MRI scan showed the lesion close to the optic chiasm. Patient denies any change in vision double vision problems with color vision. He has a history of a cataract in the right eye which may require surgery in the near term. He has had cataract surgery in the left eye. He also has a history of Macular degeneration. 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, Allergies/Medications Allergies: Coded Allergies: Penicillins (ANAPHYLAXIS 03/29/17) cefuroxime (VOMITING, DIZZY, DISORIENTED, PER PT THOUGHT STROKE 03/29/17) morphine (UPSET STOMACH/VOMITING 03/29/17) Home Med List: Amlodipine Besylate 5 MG TABLET 1 TAB PO QPM BP (Reported) Cefuroxime Axetil (Cefuroxime) 500 MG TABLET 1 TAB PO BID ANTIBIOTIC ( Reported) Cyclosporine (Restasis) 0.05 % DROPERETTE 2 GTT OU PRN BOTH EYES -LUBRICANT ( Reported) Losartan Potassium 100 MG TABLET 1 TAB PO DAILY BP (Reported) Turmeric Root Extract (Turmeric) (Unknown Strength) CAPSULE (Unknown Dose) PO DAILY INFLAMMATION (Reported) Vit C/Vit E/Lutein/Min/[place]-3 (Ocuvite Softgel) 150 MG-30 UNIT-5 MG-150 MG CAPSULE 1 CAP PO DAILY SUPPLEMENT (Reported) Current Medications: Current Medications Sig/Noreen Start time Last Medication Dose Route Stop Time Status Admin Acetaminophen 650 MG Q6P PRN 03/29 2044 AC PO Acetaminophen 1,000 MG Q6P PRN 03/29 2044 AC IV Amlodipine Besylate 0 .STK-MED ONE 03/29 2320 DC PO Amlodipine Besylate 5 MG QPM 03/29 2300 AC 03/29 PO 2220 Azithromycin 250 MG DAILY 03/30 1000 CAN PO Enoxaparin Sodium 40 MG DAILY 03/30 1000 DC 03/30 SC 1202 Guaifenesin 10 ML Q6P PRN 03/29 2130 AC PO Losartan Potassium 100 MG DAILY 03/30 1000 DC 03/30 PO 1202 Oseltamivir Phosphate 75 MG BID 03/30 1402 AC 03/30 PO 04/03 2201 1736 Sodium Chloride 1,000 ML Q13H 03/29 2130 DC IV Sodium Chloride 2 SPRAY Q4P PRN 03/29 213 AC MAI Sodium Chloride 1,000 ML ONCE ONE 03/29 1630 DC 03/29 IV 03/29 2309 1716 Past History Medical History Cardiovascular: hypertension Gastrointestinal: diverticulitis Renal: benign prost hyperplasia Cancer(s): basal cell carcinoma (1979) Surgical History Pertinent Surgical History: non-contributory Psychosocial History Smoking Status: Never Smoked ETOH Use: occasional use Illicit Drug Use: denies illicit drug use Functional Ability ADLs Independent: dressing, eating, toileting, bathing. Ambulation: independent IADLs Independent: shopping, housework, finances, food prep, telephone, transportation , medication admin. Exam & Diagnostic Data Vital Signs and I&O Vital Signs Date Time Temp Pulse Resp B/P B/P Pulse O2 O2 Flow FiO2 Mean Ox Delivery Rate 03/30 1436 97.8 66 20 138/66 92 Room Air Room Air 03/30 1202 58 132/56 03/30 0800 95 Nasal 2.0L Cannula 03/30 799 95 Nasal 2.0L Cannula 03/30 0735 98.4 61 20 140/62 92 03/30 0007 98.6 61 20 138/62 94 Nasal 2.0L Cannula 03/30 0000 Nasal 2.0L Cannula 03/29 2320 98.5 56 18 115/56 96 Nasal 2.0L Cannula 03/29 2220 98.7 59 18 138/61 03/29 1857 59 18 138/61 96 Nasal 2.5L Cannula Intake & Output 03/30 1600 03/30 0803/30 0000 03/29 1600 03/29 0803/29 0000 Intake Total 840 440 0 Output Total 900 575 175 0 Balance -60 -575 265 0 Intake, Oral 840 440 0 Output, Urine 900 575 175 0 Patient 180 lb 180 lb Weight Weight Reported by Patient Measurement Method Physical Exam: Patient's visual acuity is 20/50 in his right eye and 20/40 in his left eye with near card. There is no afferent pupillary defect in either eye. Motility is normal and full in each eye. External examination is white and quiet in both eyes. Pupils were dilated. The optic nerve in the right eye was very difficult to see through hazy media associated with his cataract. His blood vessels on this eye seemed normal and the optic nerve which was partially visible seemed normal. Much better view of the left eye was obtained and there was no optic nerve edema Imaging Results: Most 2 cm x 2 cm round adenoma located near the optic chiasm. Assessment/Plan Assessment/Plan The patient has an incidental finding of a pituitary adenoma. I do not believe that this is causing any of his present complaints. With a limited bedside examination it does not appear to be impinging upon his vision however an office -based examination consisting of automated visual field testing and dilated ophthalmoscopy should be performed when the patient is discharged. This should be done with the patient's existing engineering project manager. I do not believe the patient requires any more inpatient acute evaluation for this particular part of his problem. Consult Acknowledgment - Thank you for your consult request. Attending MD Review Statement Attending Statement Attending MD Statement: examined this patient Attending Assessment/Plan: See assessment and plan.
[2017-03-30 22:26] VITALS: BP 130/60
--- NOTE | 2017-03-30 23:32 | Cons- Endocrinology ---
General Information and HPI Consulting Request Date of Consult: 03/30/17 Requested By: Medical team Reason for Consult: evaluation and managemnet of 2.2 cm solid and cystic sellar mass Source of Information: patient, old records Exam Limitations: no limitations History of Present Illness: 81 y/o male who has had past medical history significant for hypertention, BPH, was admitted for feeling weak, having lightheadedness and unstaedy gaint x several days. He was found t have flu. In addition, CT scan incidentally demonstrated a sellar/suprasellar cyst. MRI of pituitary was done which revealed an expansile solid and cystic sellar and suprasellar mass measuring 1.8x2.1x2.2 cm with mass effect upon the optic chiasm as well as a portion of the prechiasmatic optic nerve and retrochasmatic optic tracts. There is also mild mass effect on the hypothalamus, right more than left and mild mass effect on the inferior third ventricle. Patient denied having any significant headache or vision field changes. Allergies/Medications Allergies: Coded Allergies: Penicillins (ANAPHYLAXIS 03/29/17) cefuroxime (VOMITING, DIZZY, DISORIENTED, PER PT THOUGHT STROKE 03/29/17) morphine (UPSET STOMACH/VOMITING 03/29/17) Home Med List: Amlodipine Besylate 5 MG TABLET 1 TAB PO QPM BP (Reported) Cefuroxime Axetil (Cefuroxime) 500 MG TABLET 1 TAB PO BID ANTIBIOTIC ( Reported) Cyclosporine (Restasis) 0.05 % DROPERETTE 2 GTT OU PRN BOTH EYES -LUBRICANT ( Reported) Losartan Potassium 100 MG TABLET 1 TAB PO DAILY BP (Reported) Turmeric Root Extract (Turmeric) (Unknown Strength) CAPSULE (Unknown Dose) PO DAILY INFLAMMATION (Reported) Vit C/Vit E/Lutein/Min/[place]-3 (Ocuvite Softgel) 150 MG-30 UNIT-5 MG-150 MG CAPSULE 1 CAP PO DAILY SUPPLEMENT (Reported) Review of Systems Review of Systems Constitutional: Reports: see HPI, weakness. Cardiovascular: Denies: chest pain. Respiratory: Reports: cough. GI: Denies: abdominal pain. Neurological/Psychological: Reports: see HPI. Hematologic/Endocrine: Denies: polyuria, polydipsia. Past History Travel History Traveled to [place] past 21 day No Medical History Cardiovascular: hypertension Gastrointestinal: diverticulitis Renal: benign prost hyperplasia Cancer(s): basal cell carcinoma (1979) Surgical History Surgical History: non-contributory Psychosocial History Smoking Status: Never Smoked ETOH Use: occasional use Illicit Drug Use: denies illicit drug use Functional Ability ADLs Independent: dressing, eating, toileting, bathing. Ambulation: independent IADLs Independent: shopping, housework, finances, food prep, telephone, transportation , medication admin. Exam & Diagnostic Data Last 24 Hrs of Vital Signs/I&O Vital Signs Date Time Temp Pulse Resp B/P B/P Pulse O2 O2 Flow FiO2 Mean Ox Delivery Rate 03/30 2225 98.1 65 20 130/60 91 Room Air 03/30 2206 70 132/82 03/30 1436 97.8 66 20 138/66 92 Room Air Room Air 03/30 1202 58 132/56 03/30 0800 95 Nasal 2.0L Cannula 03/30 08 95 Nasal 2.0L Cannula 03/30 0735 98.4 61 20 140/62 92 03/30 0007 98.6 61 20 138/62 94 Nasal 2.0L Cannula 03/30 0000 Nasal 2.0L Cannula Intake & Output 03/30 1600 03/30 0800 03/30 0000 Intake Total 840 440 Output Total 900 575 175 Balance -60 -575 265 Intake, Oral 840 440 Output, Urine 900 575 175 Patient 180 lb Weight Physical Exam General Appearance: no apparent distress Eyes: Bilateral: normal appearance, other (no significant visual deficit). Neck: normal inspection Respiratory: decreased breath sounds Cardiovascular: regular rate/rhythm Gastrointestinal: soft Extremities: no edema Labs/Ran Results: Laboratory Tests 03/30 03/30 03/30 1615 0926 0750 Chemistry Sodium (137 - 145 mmol/L) 133 L Potassium (3.5 - 5.1 mmol/L) 4.2 Chloride (98 - 107 mmol/L) 98 Carbon Dioxide (22 - 30 mmol/L) 25 Anion Gap (5 - 16) 10 BUN (9 - 20 mg/dL) 19 Creatinine (0.7 - 1.2 mg/dL) 0.9 Estimated GFR (>60 ml/min) > 60 BUN/Creatinine Ratio (7 - 25 %) 21.1 Insulin-like GF I Pending IGF I Z-Score (Male) Pending IGF I Z-Score (Female) Pending ACTH Stimulation Pending Hematology CBC w Diff MAN DIFF ORDERED WBC (4.8 - 10.8 /CUMM) 6.7 RBC (4.70 - 6.10 /CUMM) 4.32 L Hgb (14.0 - 18.0 G/DL) 14.1 Hct (42 - 52 %) 41.3 L MCV (80.0 - 94.0 FL) 95.4 H MCH (27.0 - 31.0 PG) 32.6 H RDW (11.5 - 14.5 %) 13.1 Plt Count (130 - 400 /CUMM) 235 MPV (7.4 - 10.4 FL) 8.9 Gran % (42.2 - 75.2 %) 48.1 Lymphocytes % (20.5 - 51.1 %) 24.5 Monocytes % (1.7 - 9.3 %) 26.6 H Eosinophils % (0 - 5 %) 0.4 Basophils % (0.0 - 2.0 %) 0.4 Absolute Granulocytes (1.4 - 6.5 /CUMM) 3.2 Absolute Lymphocytes (1.2 - 3.4 /CUMM) 1.6 Absolute Monocytes (0.10 - 0.60 /CUMM) 1.8 H Absolute Eosinophils (0.0 - 0.7 /CUMM) 0 Absolute Basophils (0.0 - 0.2 /CUMM) 0 Platelet Estimate (ADEQUATE) ADEQUATE Normocytic RBCs VERIFIED Normochromic RBCs VERIFIED PUBS MCHC (33.0 - 37.0 G/DL) 34.2 Serology Virus Culture Pending 03/30 03/29 03/29 0200 2134 2130 Chemistry Sodium (137 - 145 mmol/L) 133 L 131 L Potassium (3.5 - 5.1 mmol/L) 4.3 4.4 Chloride (98 - 107 mmol/L) 97 L 95 L Carbon Dioxide (22 - 30 mmol/L) 25 26 Anion Gap (5 - 16) 10 10 BUN (9 - 20 mg/dL) 21 H 22 H Creatinine (0.7 - 1.2 mg/dL) 1.1 1.1 Estimated GFR (>60 ml/min) > 60 > 60 BUN/Creatinine Ratio (7 - 25 %) 19.1 20.0 Troponin I (<0.11 ng/ml) 0.04 Cancelled Prolactin (3.7 - 17.9 ng/mL) 8.8 Total Testosterone (71.8 - 623 ng/dL) 32.8 L 03/29 03/29 1551 1551 Urines Urinalysis LIGHT H Urine Color (YEL,AMB,STR) YEL Urine Clarity (CLEAR) CLEAR Urine pH (5.0 - 8.0) 6.0 Ur Specific [place] (1.001 - 1.035) >= 1.030 Urine Protein (NEG,<30 MG/DL) 30 H Urine Ketones (NEG) NEG Urine Nitrite (NEG) NEG Urine Bilirubin (NEG) NEG Urine Urobilinogen (0.1 - 1.0 EU/dl) 0.2 Ur Leukocyte Esterase (NEG) NEG Ur Microscopic SEDIMENT EXAMINED Urine RBC (0 - 5 /HPF) RARE Ur Epithelial Cells (NONE,FEW) RARE Urine Mucus (FEW,NONE) RARE Urine Hemoglobin (NEG) TRACE-INTACT H Urine Osmolality (300 - 1000 MOSM/KG) 704 Ur Random Creatinine (mg/dL) 192.8 Ur Random Sodium (30 - 90 mmol/L) 30 Ur Random Potassium (mmol/L) 69.6 Fraction Sodium Excret (<1% %) 0.1 Urine Glucose (N MG/DL) NEG 03/29 1257 Chemistry Sodium (137 - 145 mmol/L) 130 L Potassium (3.5 - 5.1 mmol/L) 4.5 Chloride (98 - 107 mmol/L) 94 L Carbon Dioxide (22 - 30 mmol/L) 25 Anion Gap (5 - 16) 11 BUN (9 - 20 mg/dL) 21 H Creatinine (0.7 - 1.2 mg/dL) 1.2 Estimated GFR (>60 ml/min) 58 L BUN/Creatinine Ratio (7 - 25 %) 17.5 Glucose (65 - 99 mg/dL) 108 H Serum Osmolality (285 - 295 MOSM/KG) 267 L Calcium (8.4 - 10.2 mg/dL) 8.5 Magnesium (1.6 - 2.3 mg/dL) 1.8 Total Bilirubin (0.2 - 1.3 mg/dL) 0.8 AST (17 - 59 U/L) 43 ALT (21 - 72 U/L) 48 Alkaline Phosphatase (< 127 U/L) 52 Troponin I (<0.11 ng/ml) 0.03 Total Protein (6.3 - 8.2 g/dL) 6.5 Albumin (3.5 - 5.0 g/dL) 3.6 Globulin (1.9 - 4.2 gm/dL) 2.9 Albumin/Globulin Ratio (1.1 - 2.2 %) 1.2 TSH (0.270 - 4.200 uIU/mL) 0.618 Free T4 (0.85 - 1.93 ng/dL) 0.68 L Cortisol PM Sample (1.7 - 14.1) 20.9 H Hematology CBC w Diff MAN DIFF ORDERED WBC (4.8 - 10.8 /CUMM) 8.1 RBC (4.70 - 6.10 /CUMM) 4.60 L Hgb (14.0 - 18.0 G/DL) 14.7 Hct (42 - 52 %) 44.3 MCV (80.0 - 94.0 FL) 96.3 H MCH (27.0 - 31.0 PG) 32.0 H RDW (11.5 - 14.5 %) 13.5 Plt Count (130 - 400 /CUMM) 267 MPV (7.4 - 10.4 FL) 8.7 Gran % (42.2 - 75.2 %) 61.0 Lymphocytes % (20.5 - 51.1 %) 15.0 L Monocytes % (1.7 - 9.3 %) 23.7 H Eosinophils % (0 - 5 %) 0.1 Basophils % (0.0 - 2.0 %) 0.2 Absolute Granulocytes (1.4 - 6.5 /CUMM) 5.0 Segmented Neutrophils (42.2 - 75.2 %) 55 Band Neutrophils (0.0 - 5.0 %) 5 Absolute Lymphocytes (1.2 - 3.4 /CUMM) 1.2 Lymphocytes (20.5 - 51.1 %) 13 L Monocytes (1.7 - 9.3 %) 27 H Absolute Monocytes (0.10 - 0.60 /CUMM) 1.9 H Absolute Eosinophils (0.0 - 0.7 /CUMM) 0 Absolute Basophils (0.0 - 0.2 /CUMM) 0 Platelet Estimate (ADEQUATE) VERIFIED BY SMEAR Poikilocytosis 1+ Boyd Cells 1+ PUBS MCHC (33.0 - 37.0 G/DL) 33.2 Assessment/Plan Assessment/Plan 81 y/o male who has had past medical history significant for hypertention, BPH, was admitted for feeling weak, having lightheadedness and unstaedy gaint x several days. He was found to have flu. In addition, imaging studies incidentally demonstrated an expansile solid and cystic sellar and suprasellar mass measuring 1.8x2.1x2.2 cm with mass effect upon the optic chiasm as well as a portion of the prechiasmatic optic nerve and retrochasmatic optic tracts. There is also mild mass effect on the hypothalamus, and mild mass effect on the inferior third ventricle. 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 At this point, his random cortisol level is not low. IGF-1 level is still pending. According to physical exam, there is no significant evidence of visual field deficit. However, the formal visual field will be done as outpatient. According to his UA and urine osmolality, his posterior pituitary function is still intact. Further management: 1. repeat am cortisol, check ACTH; repeat TSH, free T4 and check TT3 tomorrow morning. 2. the hormone replacement will be determined accordingly. 3. agree with holdling off on lovenox at this point. 4. check formal visual field as outpatient. 5. will refer patient to a pituitary surgeon for ? surgical intervention as outpatient. will follow Consult Acknowledgment - Thank you for your consult request.
[2017-03-31 06:46] VITALS: BP 110/56
[2017-03-31 08:56] LABS: ABSOLUTE BASOPHIL COUNT 0 /CUMM (0.0-0.2); ABSOLUTE EOSINOPHIL COUNT 0.1 /CUMM (0.0-0.7); ABSOLUTE GRANULOCYTE CT 1.8 /CUMM (1.4-6.5); ABSOLUTE LYMPH COUNT 2.5 /CUMM (1.2-3.4); ABSOLUTE MONOCYTE COUNT 1.2 /CUMM (0.10-0.60); BASOPHIL % 0.6 % (0.0-2.0); EOSINOPHIL % 1.9 % (0-5); GRANULOCYTE % 32.8 % (42.2-75.2); HEMATOCRIT 40.5 % (42-52); MEAN CORPUSCULAR HGB 32.6 PG (27.0-31.0); MEAN CORPUSCULAR VOLUME 95.8 FL (80.0-94.0); MEAN PLATELET VOLUME 8.6 FL (7.4-10.4); PLATELET COUNT 273 /CUMM (130-400); RBC DISTRIBUTION WIDTH 13.2 % (11.5-14.5); RED BLOOD CELL CT 4.23 /CUMM (4.70-6.10); WHITE BLOOD CELL COUNT 5.6 /CUMM (4.8-10.8)
--- NOTE | 2017-03-31 11:19 | PN- Endocrinology ---
Assessment/Plan Assessment: 81 y/o male who has had past medical history significant for hypertention, BPH, was admitted for feeling weak, having lightheadedness and unstaedy gaint x several days. He was found to have flu. In addition, imaging studies incidentally demonstrated an expansile solid and cystic sellar and suprasellar mass measuring 1.8x2.1x2.2 cm with mass effect upon the optic chiasm as well as a portion of the prechiasmatic optic nerve and retrochasmatic optic tracts. There is also mild mass effect on the hypothalamus, and mild mass effect on the inferior third ventricle. 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 At this point, his random cortisol level is not low. IGF-1 level is still pending. According to physical exam, there is no significant evidence of visual field deficit. However, the formal visual field will be done as outpatient. The repeat am lab done on 03/31/2017 showed sodium 137, K 4.4, TSH 2.08, free T4 0.66, am cortisol 12.8, urine S.G. 1.010, urine osmolality 277, total testosterone 27.2. Plan: 1. recommend starting Levothyroxine 25 mcg daily; 2. continue monitoring am cortisol; follow ACTH and IGF-1 level; 3. formal visual field exam as outpatient; 4. will refer patient to a pituitary surgeon for ? surgical intervention as outpatient. Subjective Subjective: He feels better this morning. Objective Last 24 Hrs of Vital Signs/I&O Vital Signs Date Time Temp Pulse Resp B/P B/P Pulse O2 O2 Flow FiO2 Mean Ox Delivery Rate 03/31 0646 98.6 52 18 110/56 96 Nasal 2.0L Cannula 03/31 0000 Nasal 2.0L Cannula 03/306 98.1 65 20 130/60 91 Room Air 03/30 2206 70 132/82 03/30 1436 97.8 66 20 138/66 92 Room Air Room Air 03/30 1202 58 132/56 Intake & Output 03/31 1600 03/31 0800 03/31 0000 Intake Total 0 800 Output Total 1150 Balance -1150 800 Intake, IV 0 Intake, Oral 0 800 Number 0 Bowel Movements Output, Urine 1150 Patient 180 lb Weight Results Pertinent Lab/Ran Results: Laboratory Tests 03/31 03/31 0820 0820 Chemistry Sodium (137 - 145 mmol/L) 137 Potassium (3.5 - 5.1 mmol/L) 4.4 Chloride (98 - 107 mmol/L) 100 Carbon Dioxide (22 - 30 mmol/L) 27 Anion Gap (5 - 16) 10 BUN (9 - 20 mg/dL) 20 Creatinine (0.7 - 1.2 mg/dL) 1.0 Estimated GFR (>60 ml/min) > 60 BUN/Creatinine Ratio (7 - 25 %) 20.0 TSH (0.270 - 4.200 uIU/mL) 2.080 Free T4 (0.85 - 1.93 ng/dL) 0.66 L Thyroxine Binding Indx (23.5 - 40.5 % UPTAKE) 33.9 Total Testosterone (71.8 - 623 ng/dL) 27.2 L Cortisol AM Sample (4.46 - 22.7 ug/dL) 12.8 ACTH Stimulation Pending Hematology CBC w Diff MAN DIFF ORDERED WBC (4.8 - 10.8 /CUMM) 5.6 RBC (4.70 - 6.10 /CUMM) 4.23 L Hgb (14.0 - 18.0 G/DL) 13.8 L Hct (42 - 52 %) 40.5 L MCV (80.0 - 94.0 FL) 95.8 H MCH (27.0 - 31.0 PG) 32.6 H RDW (11.5 - 14.5 %) 13.2 Plt Count (130 - 400 /CUMM) 273 MPV (7.4 - 10.4 FL) 8.6 Gran % (42.2 - 75.2 %) 32.8 L Lymphocytes % (20.5 - 51.1 %) 43.9 Monocytes % (1.7 - 9.3 %) 20.8 H Eosinophils % (0 - 5 %) 1.9 Basophils % (0.0 - 2.0 %) 0.6 Absolute Granulocytes (1.4 - 6.5 /CUMM) 1.8 Segmented Neutrophils (42.2 - 75.2 %) 32 L Band Neutrophils (0.0 - 5.0 %) 5 Absolute Lymphocytes (1.2 - 3.4 /CUMM) 2.5 Lymphocytes (20.5 - 51.1 %) 46 Monocytes (1.7 - 9.3 %) 12 H Absolute Monocytes (0.10 - 0.60 /CUMM) 1.2 H Eosinophils (0 - 5.0 %) 4 Absolute Eosinophils (0.0 - 0.7 /CUMM) 0.1 Basophils (0.0 - 2.0 %) 1 Absolute Basophils (0.0 - 0.2 /CUMM) 0 Platelet Estimate (ADEQUATE) ADEQUATE Normocytic RBCs VERIFIED Normochromic RBCs VERIFIED PUBS MCHC (33.0 - 37.0 G/DL) 34.0 03/31 03/31 03/30 0515 0515 1615 Chemistry Insulin-like GF I Pending IGF I Z-Score (Male) Pending IGF I Z-Score (Female) Pending ACTH Stimulation Pending Urines Urine Color (YEL,AMB,STR) YEL Urine Clarity (CLEAR) CLEAR Urine pH (5.0 - 8.0) 6.0 Ur Specific [place] (1.001 - 1.035) 1.010 Urine Protein (NEG,<30 MG/DL) NEG Urine Ketones (NEG) NEG Urine Nitrite (NEG) NEG Urine Bilirubin (NEG) NEG Urine Urobilinogen (0.1 - 1.0 EU/dl) 0.2 Ur Leukocyte Esterase (NEG) NEG Ur Microscopic EXAM NOT REQUIRED Urine Hemoglobin (NEG) NEG Urine Osmolality (300 - 1000 MOSM/KG) 277 L Urine Glucose (N MG/DL) NEG
--- NOTE | 2017-03-31 12:15 | PN- Housestaff ---
Queenie Rojas 03/31/17 1215: Subjective Follow-up For: Generalized weakness Dizziness Cystic macroadenoma Subjective: The patient was seen and examined. No visual complaints, visual changes. Denies headache, nausea, vomiting, shortness of breath, chest pain, abdominal pain, urinary symptoms. On tamiflu for influenza Vital signs stable. Review of Systems Constitutional: Reports: no symptoms. Objective Last 24 Hrs of Vital Signs/I&O Vital Signs Date Time Temp Pulse Resp B/P B/P Pulse O2 O2 Flow FiO2 Mean Ox Delivery Rate 03/31 1600 Nasal 1.0L Cannula 03/31 1442 97.8 70 20 108/56 92 03/31 0800 91 Nasal 1.0L Cannula 03/31 0646 98.6 52 18 110/56 96 Nasal 2.0L Cannula 03/31 0000 Nasal 2.0L Cannula 03/30 2226 98.1 65 20 130/60 91 Room Air 03/30 2206 70 132/82 Intake & Output 03/31 1600 03/31 0800 03/31 0000 Intake Total 900 0 800 Output Total 1150 Balance 900 -1150 800 Intake, IV 0 Intake, Oral 900 0 800 Number 0 Bowel Movements Output, Urine 1150 Patient 180 lb Weight Physical Exam General Appearance: Alert, Oriented X3, Cooperative, No Acute Distress Other Physical Findings: Skin: No Rashes Skin Temp/Moisture Exam: Warm/Dry HEENT: Atraumatic, PERRLA, EOMI, Mucous Membr. moist/pink Neck: Supple, No JVD, No thryomegaly, +2 Carotid Pulse wo Bruit, No LAD Lymphatic: Axillary nl, Cervical nl Cardiovascular: Regular Rate, Normal S1, Normal S2, No Murmurs, Gallops, Rubs Lungs: Clear to Auscultation, Normal Air Movement Abdomen: Normal Bowel Sounds, Soft, No Tenderness, No Hepatospenomegaly, No Masses Neurological: Normal Gait, Normal Speech, Strength at 5/5 X4 Ext, Normal Tone, Sensation Intact, Cranial Nerves 3-12 NL, Reflexes 2+ Extremities: No Clubbing, No Cyanosis, No Edema, Normal Pulses, No Tenderness/ Swelling Vascular: Normal Pulses, Pulses Symmetrical Other Physical Findings: No nystagmus, [id number] intact Current Medications: Current Medications Sig/Noreen Start time Last Medication Dose Route Stop Time Status Admin Acetaminophen 650 MG Q6P PRN 03/29 2044 AC PO Acetaminophen 1,000 MG Q6P PRN 03/29 2044 AC IV Amlodipine Besylate 5 MG QPM 03/29 2300 AC 03/30 PO 220 Codeine 15 MG AT BEDTIME NEED.. 03/31 1015 AC PO Guaifenesin 10 ML .STK-MED ONE 03/31 0443 DC PO 03/31 044 Guaifenesin 10 ML Q6P PRN 03/29 2130 AC 03/31 PO 044 Levothyroxine Sodium 0.025 MG DAILY AC 04/01 0700 AC PO Oseltamivir Phosphate 75 MG BID 03/30 1402 AC 03/31 PO 04/03 2200 102 Sodium Chloride 2 SPRAY Q4P PRN 03/29 2129 AC MAI Last 24 Hrs of Lab/Ran Results Last 24 Hrs of Labs/Mics: Laboratory Tests 03/31/17 0820: Anion Gap 10, Estimated GFR > 60, BUN/Creatinine Ratio 20.0, TSH 2.080, Free T4 0.66 L, Thyroxine Binding Indx 33.9, Total Testosterone 27.2 L, Cortisol AM Sample 12.8 03/31/17 0820: ACTH Stimulation Pending, CBC w Diff MAN DIFF ORDERED, RBC 4.23 L, MCV 95.8 H, MCH 32.6 H, RDW 13.2, MPV 8.6, Gran % 32.8 L, Lymphocytes % 43.9, Monocytes % 20.8 H, Eosinophils % 1.9, Basophils % 0.6, Absolute Granulocytes 1.8, Segmented Neutrophils 32 L, Band Neutrophils 5, Absolute Lymphocytes 2.5, Lymphocytes 46, Monocytes 12 H, Absolute Monocytes 1.2 H, Eosinophils 4, Absolute Eosinophils 0.1, Basophils 1, Absolute Basophils 0, Platelet Estimate ADEQUATE, Normocytic RBCs VERIFIED, Normochromic RBCs VERIFIED, PUBS MCHC 34.0 03/31/17 0515: Urine Osmolality 277 L 03/31/17514: Urine Color YEL, Urine Clarity CLEAR, Urine pH 6.0, Ur Specific [place] 1.010, Urine Protein NEG, Urine Ketones NEG, Urine Nitrite NEG, Urine Bilirubin NEG, Urine Urobilinogen 0.2, Ur Leukocyte Esterase NEG, Ur Microscopic EXAM NOT REQUIRED, Urine Hemoglobin NEG, Urine Glucose NEG Assessment/Plan Assessment: This is a 81-year-old gentleman with a past medical history significant for hypertension, BPH, diverticulitis, basal cell carcinoma who presented to the ED for the evaluation of generalized weakness and malaise for 3 days. He was diagnosed for acute postnasal drip and was prescribed cefuroxime 3 days prior to admission. 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 Lovenox was discontinued. NSAIDS were avoided. Neurosurgery, neurology, endocrinology and ophthalmology were consulted. * The patient has remained without any visual symptoms and visual exam remained within normal limits. * Neurology and endocrinology recommended formal ophthalmology evaluation. * Additional testing including a repeat TSH, free T4, T3 also, a.m. cortisol, ACTH, testosterone, prolactin, LH, FSH, urine osmolality, UA were ordered to further assess pituitary function. * Given patient's low free T4, he may benefit from levothyroxine, but per endocrinology, this should be decided after a repeat free T4 and TSH. * Neurology and neurosurgery did not recommend corticosteroid therapy at this point. * Neurosurgery did not recommend any neurosurgical intervention and patient was asymptomatic with normal visual jones no sign of hemorrhage on imaging. They recommended follow-up in neurosurgery at [facility] as an outpatient. * The patient was reevaluated by senior technical program manager who did not recommend any further inpatient evaluation. * Urgent transfer if he develops any visual field abnormalities, visual symptoms , headache or focal neurologic abnormalities. * No visual symptoms, complaints. * No change in visual field exam today. #Weakness/Malaise: Patient's low sodium level was considered as a contributing factor. * PT evaluation was ordered. * Flu swab came back positive for influenza. * The patient was started on and droplet precautions. * On Tamiflu for influenza. #Hyponatremia: Resolved Was thought to be secondary to volume depletion. Urine specific gravity was high. Received IV hydration. * Monitor BEP #Hypertension: Stable, was maintained on amlodipine. Losartan was held given low sodium level. * Monitor closely #Postnasal drip and cough: C/w sodium chloride nasal spray and guaifenesin #DVT prophylaxis: Alps #Patient is full code. Problem List: 1. Brain mass 2. Influenza Pain Ratin Pain Location: NA Pain Goal: Remain pain free Pain Plan: NA Tomorrow's Labs & Rationales: CBC to monitor H&H BEP to monitor electrolytes Consulting Request: Consulting Specialty: Ophthalmology Angeles JARA,Marisol 03/31/17 1335: Attending MD Review Statement Attending Statement Attending MD Statement: examined this patient, discuss w/resident/PA/LOCK EXPERT, agreed w/resident/PA/LOCK EXPERT, discussed with family, reviewed EMR data (avail), discussed with case mgmt, reviewed images Attending Assessment/Plan: Patient is feeling better but continues to have this nasty cough. He says he hardly slept at all because of the cough. Is worried about his as she has been diagnosed with influenza too. We are treating him with Tamiflu for influenza. He's been noted to have the suprasellar pituitary mass and we have endocrine, neurosurgery and neurology on board. We're checking and repeating the pituitary hormones and he will need outpatient close endocrine and neurosurgical follow-up for this.
[2017-03-31 14:42] VITALS: BP 108/56
[2017-03-31 21:44] VITALS: BP 112/64
[2017-04-01 06:48] VITALS: BP 110/56
--- NOTE | 2017-04-01 09:25 | Patient Discharge Instructions ---
Discharge Instructions General Discharge Information You were seen/treated for: Suprasellar mass with a cystic components Influenza Special Instructions: Please follow-up with your PCP within a week of discharge. Please follow up with atm servicer, Dr. traore within a week of discharge. Please follow-up with [place] neurosurgery, Dr. Ronnie Valdes within a week of discharge. Please follow up with Dr. Bryant Steele within a 2 days of discharge. He is expecting your call. Diet Recommended Diet: Heart Healthy Activity Additional ACTIVITY Info: As tolerated. Acute Coronary Syndrome Inclusion Criteria At DC or during hospital stay patient has or had the following: ACS DIAGNOSIS No Discharge Core Measures Meds if any: Prescribed or Continued at Discharge Meds if any: NOT Prescribed or Continued at Discharge Congestive Heart Failure Inclusion Criteria At DC or during hospital stay patient has or had the following: CHF DIAGNOSIS No Discharge Core Measures Meds if any: Prescribed or Continued at Discharge Meds if any: NOT Prescribed or Continued at Discharge Cerebrovascular accident Inclusion Criteria At DC or during hospital stay patient has or had the following: CVA/TIA Diagnosis No Discharge Core Measures Meds if any: Prescribed or Continued at Discharge Meds if any: NOT Prescribed or Continued at Discharge Venous thromboembolism Inclusion Criteria VTE Diagnosis No VTE Type NONE VTE Confirmed by (Test) NONE Discharge Core Measures - Per Current guidelines, there needs to be overlap - treatment for the first 5 days of Warfarin therapy. - If discharged on Warfarin prior to 5 days of - overlap therapy, the patient will need to be - assessed for post discharge needs including - *Post discharge parental anticoagulation - *Warfarin and/or parental anticoagulation education - *Follow up date to check INR post discharge At least 5 days overlap therapy as Inpatient No Meds if any: Prescribed or Continued at Discharge Note: Overlap Therapy is Warfarin and Anticoagulant Meds if any: NOT Prescribed or Continued at Discharge
[2017-04-01] MEDS ORDERED: LEVOTHYROXINE25 MCG PO (09:34)
[2017-04-01] MEDS ORDERED: TAMIFLU75 M1 PO (09:34)
[2017-04-01 09:39] LABS: ABSOLUTE BASOPHIL COUNT 0 /CUMM (0.0-0.2); ABSOLUTE EOSINOPHIL COUNT 0.2 /CUMM (0.0-0.7); ABSOLUTE LYMPH COUNT 2.9 /CUMM (1.2-3.4); BASOPHIL % 0.6 % (0.0-2.0); EOSINOPHIL % 2.9 % (0-5); GRANULOCYTE % 33.1 % (42.2-75.2); MEAN CORPUSCULAR HGB 32.4 PG (27.0-31.0); MEAN CORPUSCULAR VOLUME 95.2 FL (80.0-94.0); MEAN PLATELET VOLUME 8.7 FL (7.4-10.4); PLATELET COUNT 273 /CUMM (130-400); RBC DISTRIBUTION WIDTH 13.3 % (11.5-14.5); WHITE BLOOD CELL COUNT 6.2 /CUMM (4.8-10.8)
--- NOTE | 2017-04-01 09:52 | PN- Endocrinology ---
Assessment/Plan Assessment: 81 y/o male who has had past medical history significant for hypertention, BPH, was admitted for feeling weak, having lightheadedness and unstaedy gaint x several days. He was found to have flu. In addition, imaging studies incidentally demonstrated an expansile solid and cystic sellar and suprasellar mass measuring 1.8x2.1x2.2 cm with mass effect upon the optic chiasm as well as a portion of the prechiasmatic optic nerve and retrochasmatic optic tracts. There is also mild mass effect on the hypothalamus, and mild mass effect on the inferior third ventricle. 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 At this point, his random cortisol level is not low. IGF-1 level is still pending. According to physical exam, there is no significant evidence of visual field deficit. However, the formal visual field will be done as outpatient. The repeat am lab done on 03/31/2017 showed sodium 137, K 4.4, TSH 2.08, free T4 0.66, am cortisol 12.8, urine S.G. 1.010, urine osmolality 277, total testosterone 27.2. Patient was put on Levothyroxine 25 mcg daily. As per patient, most likely he will be discharged home today. Plan: 1. continue Levothyroxine 25 mcg daily for now; 2. VF exam as outpatient; 3. I will refer him to see Dr. Ronnie Valdes at [place] for pituitary surgical evauation ( ; fax: [phone]); 4. continue monitoring am cortisol as outpatient. please let me know if there are any questions. The above plan has been discussed with patient. Subjective Subjective: He feels better; he denied having any headache. Objective Last 24 Hrs of Vital Signs/I&O Vital Signs Date Time Temp Pulse Resp B/P B/P Pulse O2 O2 Flow FiO2 Mean Ox Delivery Rate 04/01 0648 98.4 52 18 110/56 93 Room Air 04/01 0000 92 Room Air 03/31 2241 72 128/70 03/31 2144 98.7 60 20 112/64 92 03/31 2015 18 92 Room Air 03/31 1600 Nasal 1.0L Cannula 03/31 1442 97.8 70 20 108/56 92 Intake & Output 04/01 1600 04/01 0800 04/01 0000 Intake Total 50 800 Output Total Balance 50 800 Intake, IV 0 Intake, Oral 50 800 Number 0 Bowel Movements Results Pertinent Lab/Ran Results: Laboratory Tests 04/01 0825 Chemistry Sodium Pending Potassium Pending Chloride Pending Carbon Dioxide Pending Anion Gap Pending BUN Pending Creatinine Pending BUN/Creatinine Ratio Pending Hematology CBC w Diff NO MAN DIFF REQ WBC (4.8 - 10.8 /CUMM) 6.2 RBC (4.70 - 6.10 /CUMM) 4.20 L Hgb (14.0 - 18.0 G/DL) 13.6 L Hct (42 - 52 %) 40.0 L MCV (80.0 - 94.0 FL) 95.2 H MCH (27.0 - 31.0 PG) 32.4 H RDW (11.5 - 14.5 %) 13.3 Plt Count (130 - 400 /CUMM) 273 MPV (7.4 - 10.4 FL) 8.7 Gran % (42.2 - 75.2 %) 33.1 L Lymphocytes % (20.5 - 51.1 %) 46.8 Monocytes % (1.7 - 9.3 %) 16.6 H Eosinophils % (0 - 5 %) 2.9 Basophils % (0.0 - 2.0 %) 0.6 Absolute Granulocytes (1.4 - 6.5 /CUMM) 2.0 Absolute Lymphocytes (1.2 - 3.4 /CUMM) 2.9 Absolute Monocytes (0.10 - 0.60 /CUMM) 1.0 H Absolute Eosinophils (0.0 - 0.7 /CUMM) 0.2 Absolute Basophils (0.0 - 0.2 /CUMM) 0 PUBS MCHC (33.0 - 37.0 G/DL) 34.0
--- NOTE | 2017-04-01 12:54 | PN- Housestaff ---
Queenie Rojas 04/01/17 1254: Subjective Follow-up For: Generalized weakness Dizziness Cystic macroadenoma Subjective: The patient was seen and examined. He denies any visual complaints, visual changes. Denies headache, nausea, vomiting, shortness of breath, chest pain, abdominal pain, urinary symptoms. Review of Systems Constitutional: Reports: no symptoms. Objective Last 24 Hrs of Vital Signs/I&O Vital Signs Date Time Temp Pulse Resp B/P B/P Pulse O2 O2 Flow FiO2 Mean Ox Delivery Rate 04/01 0648 98.4 52 18 110/56 93 Room Air 04/01 0000 92 Room Air 03/31 2241 72 128/70 03/31 2144 98.7 60 20 112/64 92 03/31 2014 18 92 Room Air Intake & Output 04/01 1600 04/01 0800 04/01 0000 Intake Total 50 800 Output Total Balance 50 800 Intake, IV 0 Intake, Oral 50 800 Number 0 Bowel Movements Physical Exam General Appearance: Alert, Oriented X3, Cooperative, No Acute Distress Other Physical Findings: Skin: No Rashes Skin Temp/Moisture Exam: Warm/Dry HEENT: Atraumatic, PERRLA, EOMI, Mucous Membr. moist/pink Neck: Supple, No JVD, No thryomegaly, +2 Carotid Pulse wo Bruit, No LAD Lymphatic: Axillary nl, Cervical nl Cardiovascular: Regular Rate, Normal S1, Normal S2, No Murmurs, Gallops, Rubs Lungs: Clear to Auscultation, Normal Air Movement Abdomen: Normal Bowel Sounds, Soft, No Tenderness, No Hepatospenomegaly, No Masses Neurological: Normal Gait, Normal Speech, Strength at 5/5 X4 Ext, Normal Tone, Sensation Intact, Cranial Nerves 3-12 NL, Reflexes 2+, No nystagmus, finger-to- nose intact Extremities: No Clubbing, No Cyanosis, No Edema, Normal Pulses, No Tenderness/ Swelling Vascular: Normal Pulses, Pulses Symmetrical Current Medications: Current Medications Sig/Noreen Start time Last Medication Dose Route Stop Time Status Admin Acetaminophen 650 MG Q6P PRN 03/29 2044 DCD PO Acetaminophen 1,000 MG Q6P PRN 03/29 2044 DCD IV Amlodipine Besylate 5 MG QPM 03/29 2300 DCD 03/31 PO 2241 Codeine 15 MG AT BEDTIME NEED.. 03/31 1015 DC PO Guaifenesin 10 ML Q6P PRN 03/29 2130 DC 03/31 PO 0445 Guaifenesin/Codeine 10 ML Q6P PRN 03/31 2045 DCD 04/01 Phosphate PO 0600 Levothyroxine Sodium 0.025 MG DAILY AC 04/01 0700 DCD 04/01 PO 0600 Oseltamivir Phosphate 75 MG BID 03/30 1402 DCD 04/01 PO 04/03 2201 0817 Sodium Chloride 2 SPRAY Q4P PRN 03/29 213 DCD MAI Last 24 Hrs of Lab/Ran Results Last 24 Hrs of Labs/Mics: Laboratory Tests 04/01/17 0825: Anion Gap 10, Estimated GFR > 60, BUN/Creatinine Ratio 19.0, CBC w Diff NO MAN DIFF REQ, RBC 4.20 L, MCV 95.2 H, MCH 32.4 H, RDW 13.3, MPV 8.7, Gran % 33.1 L, Lymphocytes % 46.8, Monocytes % 16.6 H, Eosinophils % 2.9, Basophils % 0.6, Absolute Granulocytes 2.0, Absolute Lymphocytes 2.9, Absolute Monocytes 1.0 H, Absolute Eosinophils 0.2, Absolute Basophils 0, PUBS MCHC 34.0 Assessment/Plan Assessment: This is a 81-year-old gentleman with a past medical history significant for hypertension, BPH, diverticulitis, basal cell carcinoma who presented to the ED for the evaluation of generalized weakness and malaise for 3 days. He was diagnosed for acute postnasal drip and was prescribed cefuroxime 3 days prior to admission. 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 Lovenox was discontinued. NSAIDS were avoided. Neurosurgery, neurology, endocrinology and ophthalmology were consulted. * The patient has remained without any visual symptoms and visual exam remained within normal limits. * Neurology and endocrinology recommended formal ophthalmology evaluation. * Additional testing including a repeat TSH, free T4, T3 also, a.m. cortisol, ACTH, testosterone, prolactin, LH, FSH, urine osmolality, UA were ordered to further assess pituitary function. * Started on levothyroxine 0.025 MG per neurology recommendations. * Neurology and neurosurgery did not recommend corticosteroid therapy at this point. * Neurosurgery did not recommend any neurosurgical intervention and patient was asymptomatic with normal visual jones no sign of hemorrhage on imaging. They recommended follow-up in neurosurgery at [place] as an outpatient. * The patient was reevaluated by maintenance of way supervisor who did not recommend any further inpatient evaluation. * No visual symptoms, complaints. * No change in visual field exam today. * The patient will be discharged home with instructions to follow-up with neurosurgeon, maintenance of way supervisor and medical and scientific illustrator. #Weakness/Malaise: Patient's low sodium level was considered as a contributing factor * PT evaluation was ordered. * Flu swab came back positive for influenza. * The patient was started on and droplet precautions. * On Tamiflu for influenza. #Hyponatremia: Resolved #Hypertension: Stable, was maintained on amlodipine. Losartan was held given low sodium level. * Monitor closely #Postnasal drip and cough: C/w sodium chloride nasal spray and guaifenesin #DVT prophylaxis: Alps #Patient is full code. Problem List: 1. Influenza 2. Brain mass Pain Ratin Pain Location: NA Pain Goal: Remain pain free Pain Plan: NA Tomorrow's Labs & Rationales: NA Consulting Request: Consulting Specialty: Ophthalmology Angeles JARA,Marisol 04/01/17 1310: Attending MD Review Statement Attending Statement Attending MD Statement: examined this patient, discuss w/resident/PA/FERTILIZING MACHINE OPERATOR, agreed w/resident/PA/FERTILIZING MACHINE OPERATOR, discussed with family, reviewed EMR data (avail), discussed with nursing, reviewed images Attending Assessment/Plan: The patient feels well. He is markedly improved and off oxygen. He is ambulating and has had no visual field issues. He is stable to leave today. He 'll finish his Tamiflu course as an outpatient. I called Dr. Steele his maintenance of way supervisor and explained that he needs to be seen within the next 1-2 days for automated visual field testing and dilated ophthalmoscopic exam. Dr. Steele understood and he said his office will follow-up on this. Patient was also given referrals to Dr. traore's office and Dr. Ronnie Valdes the [place] neurosurgeon identified by Dr. traore for this pituitary mass. Patient will also leave on levothyroxine.
== END 2017-04-01 10:30 | DRG 194 ==
LOC: ERH 12:43 → 2NB 18:18 → ERHI 18:18 → ENRESERV 21:54 → 2NB 03-30 00:06 → 2NA 03-30 14:15 → ENPENDDIS 04-01 09:50 → 2NA 04-01 10:30
PROVIDERS: Emergency Medicine; Internal Medicine; Student in an Organized Health Care Education/Training Program
DX: J10.1 Influenza due to other identified influenza virus with other respiratory manifestations (principal); E87.1 Hypo-osmolality and hyponatremia; E86.1 Hypovolemia; E23.0 Hypopituitarism; F17.210 Nicotine dependence, cigarettes, uncomplicated; D35.2 Benign neoplasm of pituitary gland; H35.30 Unspecified macular degeneration; R09.82 Postnasal drip; I10 Essential (primary) hypertension; N40.0 Benign prostatic hyperplasia without lower urinary tract symptoms; Z85.828 Personal history of other malignant neoplasm of skin
CPT/HCPCS: 2NAP; 70552; 84133; 84300; 36415; 70553; 71046; 81001; 81003; 82436; 82570; 84403; 87804; 87804-59; 93005; 93010; A9579; J0131; J0456; J1650; J3490

== ENCOUNTER 2017-10-03 05:23 | Emergency (ER) | payer OTHER, MEDICARE ==
[~2017-10-03 05:23] MED LIST: AMLODIPINE BESYL5 M1 PO; CEFUROXIME500 MG PO; LEVOTHYROXINE25 MCG PO; LOSARTAN POTAS100 M1 PO; OCUVITE SOFTGE1 EACH PO; PRESERVISION A1 EAC1 PO; RESTASIS1 EACH OU; TAMIFLU75 M1 PO; TURMERIC500 M2 PO
--- NOTE | 2017-10-03 05:56 | ED GENERAL ADULT ---
See Addendum History of Present Illness General Chief Complaint: General Adult Stated Complaint: "DIFF BREATHING THROUGH NOSE S/P BRAIN SURGERY" Source: patient Exam Limitations: no limitations Vital Signs & Intake/Output Vital Signs & Intake/Output Vital Signs Date Time Temp Pulse Resp B/P B/P Pulse O2 O2 Flow FiO2 Mean Ox Delivery Rate 10/03 0809 97.8 61 20 162/72 95 Room Air 10/03 0609 59 20 177/72 95 Room Air Allergies Coded Allergies: Penicillins (ANAPHYLAXIS 03/29/17) cefuroxime (VOMITING, DIZZY, DISORIENTED, PER PT THOUGHT STROKE 03/29/17) morphine (UPSET STOMACH/VOMITING 03/29/17) Uncoded Allergies: PEPTO BISMOL (RINGING IN EARS 10/03/17) Reconcile Medications Amlodipine Besylate 5 MG TABLET 1 TAB PO QPM BP (Reported) Cyclosporine (Restasis) 0.05 % DROPERETTE 2 GTT OU PRN BOTH EYES -LUBRICANT ( Reported) Levothyroxine Sodium 25 MCG TABLET 1 TAB PO DAILY Hypothyroidism Losartan Potassium 100 MG TABLET 1 TAB PO DAILY BP (Reported) Oseltamivir Phosphate (Tamiflu) 75 MG CAPSULE 1 CAP PO BID Influenza Vit C/Vit E/Lutein/Min/[place]-3 (Ocuvite Softgel) 150 MG-30 UNIT-5 MG-150 MG CAPSULE 1 CAP PO DAILY SUPPLEMENT (Reported) Triage Nurses Notes Reviewed? yes Onset: Abrupt Duration: day(s): Timing: recent history HPI: 81 year old male presents to the Emergency Department for difficulty breathing and abdominal pain. 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 This was in April. He is been doing well. He says for the past 3 weeks she's had generalized abdominal pain no nausea vomiting or fever. He also is complaining of difficulty breathing. He also has a rash on the right lower extremity was placed on doxycycline empirically for possible Lyme disease. He denies any chest pain. (Randall Hernandez DO) Past History Travel History Traveled to [place] past 21 day No Medical History Any Pertinent Medical History? see below for history (for diverticulitis) Cardiovascular: hypertension Gastrointestinal: diverticulitis Renal: benign prost hyperplasia Cancer(s): basal cell carcinoma (1979) History of MRSA: No History of VRE: No History of CDIFF: No Influenza Vaccine: 12/05/16 Surgical History Surgical History: status post brain surgery Psychosocial History What is your primary language Macedonian Family History Hx Contributory? No (Randall Hernandez DO) Review of Systems Review of Systems Constitutional: Denies: fever. EENTM: Reports: nasal congestion. Respiratory: Reports: short of breath. Cardiovascular: Denies: chest pain. GI: Reports: abdominal pain. Denies: vomiting. Genitourinary: Reports: no symptoms. Musculoskeletal: Reports: no symptoms. Skin: Reports: see HPI. Neurological/Psychological: Reports: no symptoms. Hematologic/Endocrine: Reports: no symptoms. Immunologic/Allergic: Reports: no symptoms. (Randall Hernandez DO) Physical Exam Physical Exam General Appearance: alert, awake, anxious, mild distress Head: atraumatic, normal appearance Eyes: Bilateral: normal appearance, PERRL, EOMI. Ears, Nose, Throat: normal pharynx, normal ENT inspection, hearing grossly normal Neck: normal inspection, supple, full range of motion Respiratory: normal breath sounds, chest non-tender, no respiratory distress Cardiovascular: regular rate/rhythm Peripheral Pulses: 4+ radial (R), 4+ radial (L) Gastrointestinal: soft, tenderness (periumbilical) Back: normal range of motion Extremities: normal inspection, no edema Neurologic/Psych: no motor/sensory deficits, awake, alert, oriented x 3 Skin: intact, normal color, warm/dry Core Measures ACS in differential dx? No CVA/TIA Diagnosis: No Sepsis Present: No Sepsis Focused Exam Completed? No (Randall Hernandez DO) Progress Differential Diagnoses I considered the following diagnoses in my evaluation of the patient: [ Diverticulitis, appendicitis, pneumonia, sinusitis] Plan of Care: Orders Procedure Date/time Status TROPONIN LEVEL 10/03 0604 Complete COMPREHENSIVE METABOLIC PANEL 10/03 0604 Complete CBC WITHOUT DIFFERENTIAL 10/03 06 Complete EKG 10/03 06 Active Laboratory Tests 10/03/17 0640: Anion Gap 10, Estimated GFR > 60, BUN/Creatinine Ratio 16.7, Glucose 109 H, Calcium 9.6, Total Bilirubin 0.9, AST 31, ALT 34, Alkaline Phosphatase 71, Troponin I < 0.01, Total Protein 6.6, Albumin 3.8, Globulin 2.8, Albumin/ Globulin Ratio 1.4, CBC w Diff NO MAN DIFF REQ, RBC 4.72, MCV 92.5, MCH 30.8, MCHC 33.3, RDW 13.9, MPV 9.5, Gran % 60.9, Lymphocytes % 25.0, Monocytes % 10.8 H, Eosinophils % 2.9, Basophils % 0.4, Absolute Granulocytes 6.8 H, Absolute Lymphocytes 2.8, Absolute Monocytes 1.2 H, Absolute Eosinophils 0.3, Absolute Basophils 0 Initial ED EKG: normal sinus rhythm, Intraventricular conduction delay Prior EKG: unchanged (David ZURITA,Randall Goyal) Differential Diagnoses I considered the following diagnoses in my evaluation of the patient: Diagnostic Imaging: Discussed w/RAD: CT Scan. Radiology Impression: PATIENT: HUGH OAKES PRESENT AGE: 81 PATIENT ACCOUNT NO: [id number] : 35 LOCATION: [facility] ORDERING PHYSICIAN: Randall Hernandez DO SERVICE DATE: 10/03/17- EXAM TYPE: CAT - CT ABD & PELVIS W IV CONTRAST EXAMINATION: CT ABDOMEN AND PELVIS WITH CONTRAST CLINICAL INFORMATION: Abdominal pain; question diverticulitis. COMPARISON: None TECHNIQUE: Multidetector volumetric imaging was performed of the abdomen and pelvis following IV administration of 95 mL of Optiray 320 intravenous contrast. Sagittal and coronal reformatted images were obtained on the technologist's workstation. DLP: 547.81 mGy-cm FINDINGS: LUNG BASES: There is mild bilateral dependent atelectasis. LIVER, GALLBLADDER, AND BILIARY TREE: The liver is normal in size, shape, and generally diminished in attenuation. No focal hepatic lesion or biliary ductal dilatation is present. The gallbladder is unremarkable with no evidence of radiopaque gallstones, gallbladder wall thickening, or obvious pericholecystic inflammatory changes. PANCREAS: Unremarkable. SPLEEN: Diminutive , without focal finding. ADRENAL GLANDS: Unremarkable. KIDNEYS AND URETERS: The kidneys are normal in size, shape, and attenuation. No hydronephrosis, hydroureter, or calculi seen. There are low-attenuation bilateral renal probable cysts, some on the left too small to fully characterize with CT. There is mild nonspecific bilateral perinephric stranding. BLADDER: Unremarkable. There is a prostatic impression upon the bladder base. GASTROINTESTINAL TRACT: There is marked diverticulosis, without acute diverticulitis. There is mild fat stranding adjacent to the distal descending and proximal sigmoid colon segments. No obstruction, free intraperitoneal air or abscess is seen. The vermiform appendix appears normal. ABDOMINAL WALL: There are very small fat-containing umbilical and bilateral inguinal hernia defects. LYMPH NODES: Normal. VASCULAR: There is mild aortoiliac atherosclerotic atherosclerotic change. No abdominal aortic aneurysm is seen. 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 PELVIC VISCERA: The prostate and seminal vesicles are unremarkable. Coarse peripheral prostate calcifications noted. OSSEOUS STRUCTURES: There is degenerative disc disease with vacuum phenomenon at L5-S1. There is multi-level thoracolumbar spondylosis. No acute or aggressive osseous abnormality is seen. IMPRESSION: 1. There is diverticulosis. There is fat stranding at the junction of the descending and sigmoid colon segments, consistent with acute diverticulitis. No obstruction, free intraperitoneal air or abscess is seen. 2. There is mild hepatic steatosis. 3. There are low- attenuation bilateral renal probable cysts, some too small fully characterize with CT. 4. There are very small fat-containing umbilical and bilateral inguinal hernia defects. 5. Left-sided inferior vena cava. 6. There are thoracolumbar degenerative changes, most pronounced at L5-S1. DICTATED BY: Danyel Gamboa MD DATE/TIME DICTATED:10/03/17936 CLIENT CONSULTANT:SOTO DATE/TIME TRANSCRIBED:10/03/17936 CONFIDENTIAL, DO NOT COPY WITHOUT APPROPRIATE AUTHORIZATION. <Electronically signed in Other Vendor System> SIGNED BY: Danyel Gamboa MD 10/03/17 0950 CXR Impression: PATIENT: HUGH OAKES PRESENT AGE: 81 PATIENT ACCOUNT NO: [id number] : 35 LOCATION: [facility] ORDERING PHYSICIAN: Randall Hernandez DO SERVICE DATE: 10/03/17 EXAM TYPE: RAD - XRY- PORTABLE CHEST XRAY EXAMINATION: XR PORTABLE CHEST CLINICAL INFORMATION: Shortness of breath. COMPARISON: Prior chest radiographs dated 03/29/2017 and 2012. TECHNIQUE: Portable frontal view of the chest was obtained. FINDINGS: The heart, great vessels, pulmonary vasculature and mediastinum are normal. There is mild left base scar/subsegmental atelectasis. The right lung field appears clear. No pleural effusion or pneumothorax is seen. There is no acute osseous abnormality. IMPRESSION: There is mild left base chronic scar/subsegmental atelectasis. No new focal infiltrate or congestive heart failure is seen. DICTATED BY: Danyel Gamboa MD DATE/TIME DICTATED:10/03/17724 CLIENT CONSULTANT:SOTO DATE/TIME TRANSCRIBED:10/03/17724 CONFIDENTIAL, DO NOT COPY WITHOUT APPROPRIATE AUTHORIZATION. 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 (Luanne JARA,Randall Rizvi) Departure Departure Condition: Stable Referrals: Adore JARA,Danyel Yang (PCP/Family) Departure Forms: Customer Survey General Discharge Information Comments Labs were ordered and CT was ordered. The patient was signed out to Dr. Stroud at 7 AM. (Randall Hernandez DO) Departure Disposition: HOME OR SELF CARE Clinical Impression Primary Impression: Diverticulitis large intestine Additional Instructions: Continue the doxycycline. Add metronidazole. Tramadol as needed for pain. Follow-up with your primary care physician on Thursday or Thursday for reevaluation. Return if any concerns or sudden worsening. Please note that there might be incidental findings in your evaluation that are unrelated to the current emergency department visit. Please notify your primary care doctor about this emergency department visit in order to obtain and review all of the testing performed so that these incidental findings can be monitored as needed. If you had an x-ray performed, please understand that some fractures or other findings may not be seen on the initial set of x-rays. If your symptoms persist you might need a repeat set of x-rays to check for such a fracture. If you had a laceration evaluated, please understand that foreign bodies such as glass or wood may not be visible to the naked eye or on plain x-rays. If the wound becomes red, swollen, increasingly more painful or if there is any drainage from the wound, please have it reevaluated by a physician for the possibility of a retained foreign body. If you're unable to follow up as outlined in the discharge instructions please return to the emergency department. Thank you for choosing the [facility] Emergency Department for your care. It was a pleasure to serve you today. Randall Stroud M.D. [facility] Prescriptions: Current Visit Scripts Metronidazole (Flagyl) 1 TAB PO Q6 #28 TAB Metronidazole (Flagyl) 1 TAB PO Q6 #28 TAB Tramadol HCl 1 TAB PO Q6P PRN pain #12 TAB (Luanne JARA,Randall Rizvi) Critical Care Note Critical Care Note Critical Care Time: non-applicable (Randall Hernandez DO)
[2017-10-03 07:10] LABS: ABSOLUTE BASOPHIL COUNT 0 /CUMM (0.0-0.2); ABSOLUTE EOSINOPHIL COUNT 0.3 /CUMM (0.0-0.7); ABSOLUTE GRANULOCYTE CT 6.8 /CUMM (1.4-6.5); ABSOLUTE LYMPH COUNT 2.8 /CUMM (1.2-3.4); ABSOLUTE MONOCYTE COUNT 1.2 /CUMM (0.10-0.60); BASOPHIL % 0.4 % (0.0-2.0); EOSINOPHIL % 2.9 % (0-5); GRANULOCYTE % 60.9 % (42.2-75.2); HEMATOCRIT 43.7 % (42-52); MEAN CORPUSCULAR HGB 30.8 PG (27.0-31.0); MEAN CORPUSCULAR HGB CONC 33.3 G/DL (33.0-37.0); MEAN CORPUSCULAR VOLUME 92.5 FL (80.0-94.0); MEAN PLATELET VOLUME 9.5 FL (7.4-10.4); PLATELET COUNT 362 /CUMM (130-400); RBC DISTRIBUTION WIDTH 13.9 % (11.5-14.5); RED BLOOD CELL CT 4.72 /CUMM (4.70-6.10); WHITE BLOOD CELL COUNT 11.2 /CUMM (4.8-10.8)
--- NOTE | 2017-10-03 07:39 | RADIOLOGY REPORT ---
EXAMINATION: XR PORTABLE CHEST CLINICAL INFORMATION: Shortness of breath. COMPARISON: Prior chest radiographs dated 03/29/2017 and 08/25/2012. TECHNIQUE: Portable frontal view of the chest was obtained. FINDINGS: The heart, great vessels, pulmonary vasculature and mediastinum are normal. There is mild left base scar/subsegmental atelectasis. The right lung field appears clear. No pleural effusion or pneumothorax is seen. There is no acute osseous abnormality. IMPRESSION: There is mild left base chronic scar/subsegmental atelectasis. No new focal infiltrate or congestive heart failure is seen.
--- NOTE | 2017-10-03 09:50 | CT SCAN REPORT ---
EXAMINATION: CT ABDOMEN AND PELVIS WITH CONTRAST CLINICAL INFORMATION: Abdominal pain; question diverticulitis. COMPARISON: None TECHNIQUE: Multidetector volumetric imaging was performed of the abdomen and pelvis following IV administration of 95 mL of Optiray 320 intravenous contrast. Sagittal and coronal reformatted images were obtained on the technologist's workstation. DLP: 547.81 mGy-cm FINDINGS: LUNG BASES: There is mild bilateral dependent atelectasis. LIVER, GALLBLADDER, AND BILIARY TREE: The liver is normal in size, shape, and generally diminished in attenuation. No focal hepatic lesion or biliary ductal dilatation is present. The gallbladder is unremarkable with no evidence of radiopaque gallstones, gallbladder wall thickening, or obvious pericholecystic inflammatory changes. PANCREAS: Unremarkable. SPLEEN: Diminutive, without focal finding. ADRENAL GLANDS: Unremarkable. KIDNEYS AND URETERS: The kidneys are normal in size, shape, and attenuation. No hydronephrosis, hydroureter, or calculi seen. There are low-attenuation bilateral renal probable cysts, some on the left too small to fully characterize with CT. There is mild nonspecific bilateral perinephric stranding. BLADDER: Unremarkable. There is a prostatic impression upon the bladder base. GASTROINTESTINAL TRACT: There is marked diverticulosis, without acute diverticulitis. There is mild fat stranding adjacent to the distal descending and proximal sigmoid colon segments. No obstruction, free intraperitoneal air or abscess is seen. The vermiform appendix appears normal. ABDOMINAL WALL: There are very small fat-containing umbilical and bilateral inguinal hernia defects. LYMPH NODES: Normal. VASCULAR: There is mild aortoiliac atherosclerotic atherosclerotic change. No abdominal aortic aneurysm is seen. 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 PELVIC VISCERA: The prostate and seminal vesicles are unremarkable. Coarse peripheral prostate calcifications noted. OSSEOUS STRUCTURES: There is degenerative disc disease with vacuum phenomenon at L5-S1. There is multi-level thoracolumbar spondylosis. No acute or aggressive osseous abnormality is seen. IMPRESSION: 1. There is diverticulosis. There is fat stranding at the junction of the descending and sigmoid colon segments, consistent with acute diverticulitis. No obstruction, free intraperitoneal air or abscess is seen. 2. There is mild hepatic steatosis. 3. There are low-attenuation bilateral renal probable cysts, some too small fully characterize with CT. 4. There are very small fat-containing umbilical and bilateral inguinal hernia defects. 5. Left-sided inferior vena cava. 6. There are thoracolumbar degenerative changes, most pronounced at L5-S1.
[2017-10-03] MEDS ORDERED: FLAGYL500 MG PO ×2 (10:07→10:12)
[2017-10-03] MEDS ORDERED: ULTRAM50 M1 PO (10:07)
[2017-10-03] MEDS ORDERED: TRAMADOL HCL50 M1 PO (10:12)
[2017-10-03 10:26] VITALS: BP 152/69
== END 2017-10-03 10:27 ==
LOC: ERH 05:23
PROVIDERS: Emergency Medicine
DX: K57.32 Diverticulitis of large intestine without perforation or abscess without bleeding (principal); R10.84 Generalized abdominal pain; R06.00 Dyspnea, unspecified; R21 Rash and other nonspecific skin eruption; I10 Essential (primary) hypertension
CPT/HCPCS: 71045; 74177; 93005; 93010